=== PATIENT | male | born 1930 | race Caucasian/White ===

== ENCOUNTER 2017-05-10 14:54 | Inpatient (IN) | payer MEDICARE ==
[2017-05-10 15:25] LABS: #Eosinphils 0.1 thou/uL (0.0-0.7); #Lymphocytes 1.4 thou/uL (1.20-3.40); #Monocytes 0.7 thou/uL (0.11-0.59); #Neutrophils 3.2 thou/uL (1.40-6.50); %Basophils 0.5 % (0.0-1.0); %Eosinophils 2.1 % (0.0-10.0); %Lymphocytes 25.6 % (21.0-51.0); %Monocytes 12.7 % (0.0-10.0); %Neutrophils 59.2 % (42.0-75.0); Hemoglobin 11.7 g/dL (14.0-18.0); Mean Corpuscular HGB CONC 32.4 g/dL (32.0-36.0); Mean Corpuscular Hemoglobin 33.4 pg (27.0-31.0); Mean Platelet Volume 7.8 fL (7.4-10.4); Platelet Count 226 thou/uL (130-400); RBC Distribution Width 12.2 % (11.5-14.5); Red Blood Cell (RBC) Count 3.51 mill/uL (4.70-6.10); White Blood Cell (WBC) Count 5.3 thou/uL (4.8-10.8)
[2017-05-10 15:38] LABS: ALT (SGPT) 27 U/L (8-55); AST (SGOT) 20 U/L (5-34); Albumin 4.4 g/dL (3.4-4.8); Alkaline Phosphatase 94 U/L (40-150); Anion Gap 11 mmol/L (10-20); BUN (Urea Nitrogen) 20 mg/dL (8.4-25.7); Bilirubin, Total 0.2 mg/dL (0.2-1.2); CK (CPK) 131 U/L (30-200); Calc. Creatinine Clearance 0 mL/min (70-130); Calcium 10.5 mg/dL (7.8-10.44); Carbon Dioxide 26 mmol/L (23-31); Chloride 103 mmol/L (98-107); Estimated GFR-MDRD Greater than 90; Globulin 2.6 g/dL (2.4-3.5); Glucose 119 mg/dL (83-110); Potassium 5.4 mmol/L (3.5-5.1); Sodium 135 mmol/L (136-145)
[2017-05-10 15:46] LABS: CKMB 6.8 ng/mL (0-6.6); Troponin I 1.008 ng/mL (< 0.028)
[2017-05-10] MEDS ORDERED: Nitroglycerin 2% Ointment 1 INCH/1 GM Packet ONE (15:54)
[2017-05-10] MEDS ORDERED: Enoxaparin Sodium 80 MG/0.8 ML SYRINGE ONE (15:54)
--- NOTE | 2017-05-10 16:05 | RAD ---
RADIOGRAPH CHEST 1 VIEW: Date: 05/10/17 Time: 3:44 p.m. HISTORY: 86-year-old male with chest discomfort (heaviness). COMPARISON: 05/31/15 FINDINGS: Again noted are the sternotomy wires. There is no cardiomegaly. There is a new finding of bilateral s mall pleural effusions. There is another new finding of ill-defined increased attenuation at the righ t medial lower lung zone which could represent atelectasis, although early pneumonia would be difficu lt to exclude. Streaky densities at the retrocardiac portion of the left lower lobe is probably chron ic. Pulmonary vasculature is slightly prominent. Upper lobes are otherwise grossly clear. No pneumoth orax. IMPRESSION: 1. Bilateral small pleural effusions. 2. Probable mild atelectasis at right medial lung base. JN [] POS: OFF
[2017-05-10] MEDS ORDERED: Clopidogrel Bisulfate 75 MG TAB ONE (16:47)
[2017-05-10 16:52] LABS: INR-International Normal Ratio 1.1; PTT 32.3 SEC (22.9-36.1); Prothrombin Time 14.5 SEC (12.0-14.7)
[2017-05-10] MEDS ORDERED: Acetaminophen/Codeine 30-300mg Tablet PO PRN (18:15)
[2017-05-10] MEDS ORDERED: traMADol HCl 50 MG TAB PO PRN (18:15)
[2017-05-10] MEDS ORDERED: Ondansetron ODT 4 MG TAB PO PRN (18:37)
[2017-05-10] MEDS ORDERED: HYDROcodone/Acetaminophen 5/325 mg Tablet PO PRN (18:37)
[2017-05-10] MEDS ORDERED: Nitroglycerin 0.4 MG TAB (25 Tab Bottle) PO PRN (18:37)
[2017-05-10] MEDS ORDERED: Ondansetron HCl/PF 4 MG/2 ML Vial IVP PRN (18:37)
--- NOTE | 2017-05-10 18:47 | HP ---
DATE OF ADMISSION: 05/10/2017 CHIEF COMPLAINT: Shortness of breath. HISTORY OF PRESENT ILLNESS: This is an 86-year-old white male with a known past medical history of c oronary artery disease with history of CABG done more than 3 years ago. The patient was in his usual state of health until a few weeks ago when he contacted with flu by his , who was actually turne d positive, so the patient took Tamiflu along with his and following this, he continued to have lingering cough since then, but for the past few days, he is noticing he has had worsening dyspnea on exertion even on walking short distances. He denied having any chest pain, no nausea, no vomiting, no diarrhea, no constipation, no dizziness, no lightheadedness. The patient's decided to bring him to the ER as she did not feel that his breathing right. When the patient went to his primary car e physician's office, he was referred to the ER as he had an abnormal EKG over there. The patient ca me to the ER and had an EKG repeated which did show ST segment depression and markedly elevated tropo nins. His Cardiology is Dr. Aguayo, but Dr. Quan was called in to see the patient. The patient wa s alert and oriented otherwise. PAST MEDICAL HISTORY: 1. Coronary artery disease with CABG. 2. Chronic low back pain. 3. Hypertension. 4. Hyperlipidemia. 5. History of benign prostate hypertrophy. PAST SURGICAL HISTORY: 1. CABG more than [address] London. 2. History of aneurysm repair by Dr. London around the same time when he had the CABG. 3. History of lumbar laminectomy in 2016. SOCIAL HISTORY: The patient is a not a known smoker. No history of alcohol, no history of illicit d rug use. FAMILY HISTORY: No significant family history of coronary artery disease. REVIEW OF SYSTEMS: All 12 systems are reviewed with the patient thoroughly and found to be negative at this time except the ones described in HPI. Constitutional: Weight loss or gain, sense of well-being, ability to conduct usual activities, exerc ise tolerance. Skin/Breast: Rash, itching, changes in hair growth or loss, nail changes, breast lumps, tenderness, swelling, nipple discharge. Eyes: Vision, double vision, tearing, blind spots, pain. ENT/Mouth: Headaches (location, time of onset, duration, precipitating factors), vertigo, lightheadedness, injury. Vision, double vision, tearing, blind spots, pain, nose b leeding, colds, obstruction, discharge, dental difficulties, gingival bleeding, dentures, neck stiffn ess, pain, tenderness, masses in thyroid or other areas Cardiovascular: Precordial pain, substernal distress, palpitations, syncope, dyspnea on exertion, or thopnea, nocturnal paroxysmal dyspnea, edema, cyanosis, hypertension, heart murmurs, varicosities, ph lebitis, claudication. Respiratory: Pain, shortness of breath, wheezing, stridor, cough, hemoptysis, fever or night sweats Gastrointestinal: Poor appetite, dysphagia, indigestion, abdominal pain, heartburn, eructation, naus ea, vomiting, hematemesis, jaundice, constipation, or diarrhea, abnormal stools (addison-colored, tarry, bloody, greasy, foul smelling), flatulence, hemorrhoids, recent changes in bowel habits. Genitourinary: Urgency, frequency, dysuria, nocturia, hematuria, polyuria, oliguria, unusual (or cheryl nge in) color of urine, stones, hesitancy, change in size of stream, dribbling, acute retention or in continence, libido, potency. Musculoskeletal: Pain, swelling, redness or heat of muscles or joints, limitation, of motion, muscular weakness, atrophy, cramps. Neurologic/Psychiatric: Convulsions, paralyses, tremor, incoordination, parasthesias, difficulties w ith memory of speech, sensory or motor disturbances, or muscular coordination (ataxia, tremor), emoti onal problems, anxiety, depression, previous psychiatric care, unusual perceptions, hallucinations. Allergy/Immunologic: Skin rash, anemia, bleeding tendency, polydipsia, polyuria, intolerance to heat or cold. PHYSICAL EXAMINATION: VITAL SIGNS: Blood pressures are 158/78, heart rate is 79, respiratory rate is 18, saturation is 98% . GENERAL: The patient is a moderately built, moderately nourished, does not appear to be in acute dis tress at this time. He was seen sitting on the bed at 45 degrees inclination with no acute shortness of breath. HEENT: Head atraumatic, normocephalic. PERRLA. Extraocular movements were intact. Oral mucosa pin k and moist. CARDIOVASCULAR: S1, S2 normal. No murmurs, rubs or gallops. LUNGS: Bilateral air entry was equal. Crackles were noted in the lower bases. ABDOMEN: Soft and nontender. No guarding, no rebound tenderness. Bowel sounds normal. MUSCULOSKELETAL: No calf tenderness. No pedal edema. No joint tenderness, no joint swelling. SKIN: No cyanosis, no erythema, no rash, no pallor. NEUROLOGIC: Cranial nerve examination II-XII intact. No focal deficits were noted. NECK: The patient had evidence of JVD noted. No thyromegaly. PSYCHIATRIC: No signs of suicidal ideation. No signs of marva was noted. LABORATORY DATA: Sodium 135, potassium 5.4, chloride 103, bicarbonate 26, BUN 20, creatinine 0.74. Troponin I 1.008. BNP is 1518. WBC 5.3, hemoglobin 11.7, hematocrit is 36.2, INR 1.1. ASSESSMENT AND PLAN: 1. Acute congestive heart failure with possible diastolic dysfunction. 2. Non-ST elevation myocardial infarction. 3. Hypertension. 4. Hyperlipidemia. 5. History of coronary artery disease with coronary artery bypass grafting. PLAN: 1. Plan is to start the patient on Lasix at this time with 40 mg IV b.i.d. and closely monitor. We will restart the patient on lisinopril home dose and will do a 2D echo. Cardiology has been consulte d. We will follow up with their recommendations. 2. The patient has elevated troponins, most likely is a demand ischemia, but the patient has ST depr essions, so the patient would definitely need further evaluation of this elevated troponins, which is markedly elevated at this time. The patient has been started on loading dose of aspirin and Plavix and Lovenox. We will continue with this and closely monitor the patient on the telemetry. 3. The patient has hypertension, is mildly elevated at this time. We will continue to monitor and p everett to keep the blood pressure less than 130/80. 4. History of hyperlipidemia. Continue the patient on the home medication. The patient is on simva statin. We will continue with this at this time. 5. Deep venous thrombosis prophylaxis. Lovenox 1 mg/kg b.i.d. I spent 75 minutes of this patient.
[2017-05-10 19:25] LABS: Troponin I 1.048 ng/mL (< 0.028)
[2017-05-10] MEDS ORDERED: Carvedilol 6.25 MG TAB PO SCH (21:00)
[2017-05-10] MEDS: Magnesium Oxide 400 MG TAB PO SCH (21:40)
[2017-05-10] MEDS: Tamsulosin HCl 0.4 MG CAP PO SCH (21:40)
[2017-05-10] MEDS: Carvedilol 3.125 MG TAB PO SCH (21:40)
[2017-05-10] MEDS: Famotidine/PF 20 mg/2ml Vial SLOW IVP SCH (21:40)
[2017-05-10] MEDS: Finasteride 5 MG TAB PO SCH (21:40)
[2017-05-10 22:24] LABS: Critical Call Chem Troponin I RESULT DECREASING; Troponin I 1.017 ng/mL (< 0.028)
[2017-05-10] MEDS: Lysine 500 MG TAB PO SCH (22:30)
--- NOTE | 2017-05-10 23:28 | CON ---
CARDIOLOGY CONSULTATION NOTE DATE OF CONSULTATION: 05/10/2017 INDICATION FOR CONSULTATION: An 86-year-old patient with history of coronary artery disease, status post bypass surgery with increasing shortness of breath, dyspnea on exertion and abnormal cardiac enz ymes with a right bundle branch block. HISTORY OF PRESENT ILLNESS: This is a very unfortunate 86-year-old gentleman who has been seen by Dr Radha Cisneros for several years. He underwent bypass surgery with [address] London in 2003, unce rtain as to which vessels were bypassed. He also apparently had some type of aneurysm, he said, whic h was repaired at the same time and uncertain exactly what he means, but it was not a vascular aneury sm. It could have been some type of cardiac aneurysm, unclear. He denied having any previous myocar dial infarction; however, recent stress test did show evidence of inferior wall scar. This may be a new finding. His ejection fraction previously had been within normal limits. At this time, he had b een complaining of some shortness of breath and dyspnea on exertion and had been worsened since . He did have the flu-like illness or had the flu in March and been coughing a lot, but this has pretty much resolved, but then he started noticing increasing shortness of breath and dyspnea on exer tion and he also noticed some increasing chest pressure. He had been taking an aspirin every other d ay. He did not take nitroglycerin. He presented to the emergency room where EKG shows a right bundl e branch block with nonspecific ST segment changes. His troponin I was 1.008; however, the BNP was 1 518. He appears to be in some congestive heart failure. At this time, he denies any chest pain and appears to be relatively comfortable except he does have shortness of breath and has had diffuse whee zing. Previous nuclear study in 2017 showed the inferior scar with ejection fraction of 45%. He has also undergone an echocardiogram previously in 2016; the ejection fraction was 55% to 60% with mild left ventricular hypertrophy and large left atrium. At this time, he is stable. PAST MEDICAL AND SURGICAL HISTORY: Significant for coronary artery disease, hypertension, hyperlipid emia, bypass surgery, history of colon cancer, history of back surgery, history of chronic diarrhea a nd history of benign prostatic hypertrophy. ALLERGIES: He is allergic to NONSTEROIDALS and other ANTI-INFLAMMATORY DRUGS such as from the opioid types, MORPHINES. MEDICATIONS: Prior to admission include hydralazine 10 mg b.i.d.; Coreg 25 mg b.i.d.; simvastatin 20 mg q. day; Imdur 30 mg q. day; aspirin 81 mg q. day, but he said he takes a whole aspirin every othe r day; gabapentin 600 mg t.i.d.; fluticasone nasal spray; tamsulosin ER 0.4 mg capsules q.24 hours; f inasteride 5 mg q. day; Creon capsules, which were prescribed by Dr. Teixeira for his diarrhea. He say s this is not improved; however, he takes 1 capsule 3 times a day with meals and 1 capsule with snack s, it was 24,000/76,000/120,000 units capsules. He takes vitamin B12. He also takes alfuzosin ER 10 mg extended tablets once a day. FAMILY HISTORY: Noncontributory at this time. SOCIAL HISTORY: He has had no alcohol or tobacco abuse at this time. He has a supportive family. Louise tubbs remains . REVIEW OF SYSTEMS: A 12-point review of systems is positive for mainly for the shortness of breath, chronic diarrhea and frequent urination due to his prostate problems. He has had no other significan t complaints on the review of systems. PHYSICAL EXAMINATION: GENERAL: Reveals an elderly gentleman who is in mild distress, but is stable at this time. VITAL SIGNS: His blood pressure was 144/83 in the emergency room and is now down to 126/70, heart ra hang in the 70s and shows a sinus rhythm, respiratory rate is 18. He is afebrile. HEENT: Shows head to be normocephalic and atraumatic. I did not hear any significant carotid bruits ; however, he does have increased upper airway noise due to diffuse wheezing. CHEST: Has diffuse wheezing throughout, especially expiratory in all medel, appears to be very tigh t. CARDIOVASCULAR: Reveals a regular rate and rhythm. I cannot hear any significant murmurs, heaves, t hrills, bruits or rubs. ABDOMEN: Shows obesity with positive bowel sounds. No organomegaly or masses were noted. Femoral p ulses are present. Popliteal pulses are present. I could palpate both pedal pulses. He does have 1 -2+ lower extremity edema. He also has a well-healed midline surgical incision after median sternoto my. NEUROLOGIC: The patient appears to be fully intact. SKIN: Warm and dry at this time. PSYCHOSOCIAL: Psychologically, he appears to be stable. No other significant abnormalities were not ed. IMAGING DATA: His EKG shows a sinus rhythm with a right bundle branch block with some nonspecific ST segment changes. Chest x-ray shows small bilateral pleural effusions. BNP is 1518. His troponin I is 1.08, MB was 6.8 and creatinine is 0.74. IMPRESSION AND PLAN: 1. Congestive heart failure exacerbation, which may be secondary to ischemia. We will need to fully evaluate the patient. He will be admitted to the hospital and ruled out for myocardial infarction. His cardiac enzymes appeared to be positive, but may be due to demand ischemia. He will undergo diu resis and we will determine whether or not he has had any type of myocardial infarction or further is chemia, should it become emergently; he may need to undergo cardiac catheterization. We will also ob tain an echocardiogram for evaluation of his left ventricular systolic function. 2. History of coronary artery disease. We will continue to follow this very carefully and as noted, he has had bypass surgery in 2004. His most recent stress test showed what appeared to be an inferi or scar with ejection fraction of 46%. This was performed in 2017. He also had carotid artery disea se according to the records. In 07/2016, he had carotid Dopplers performed, which showed a left valdez tid stenosis of 50% to 79% in the carotid bulb area and the right common carotid artery was less than 50%. He also has some history of peripheral vascular disease involving the left area which avalos d some significant stenosis or disease; however, he does have pedal pulses noted in the left lower ex tremity in the feet in the pedal area. 3. History of chronic diarrhea. He will continue his medications as they will need to be dealt with by the GI if necessary. 4. History of chronic back pain and nerve problems for which he did have some complaints of cramping in the lower extremities. 5. History of hyperlipidemia. We will continue his statin medications. 6. Dizziness. This is a chronic problem, but he is not debilitating at this time. We will be more than happy to continue to follow the patient with you. We will continue to do serial enzymes on the patient and we will see whether or not he is able to diuresis and hopefully will impr ove his overall symptoms.
[2017-05-10] MEDS ORDERED: Furosemide 40 MG/4 ML VIAL SLOW IVP SCH (23:30)
[2017-05-11 05:40] LABS: Albumin 4.3 g/dL (3.4-4.8); Anion Gap 12 mmol/L (10-20); BUN (Urea Nitrogen) 18 mg/dL (8.4-25.7); Calc. Creatinine Clearance 79 mL/min (70-130); Calcium 10.6 mg/dL (7.8-10.44); Carbon Dioxide 28 mmol/L (23-31); Cardiac Risk 3.8 (Less than 4.5); Chloride 101 mmol/L (98-107); Cholesterol 124 mg/dl (< 200 Desired); Estimated GFR-MDRD Greater than 90; Glucose 117 mg/dL (83-110); HDL Cholesterol 33 mg/dL (>60 Neg Risk); LDL Cholesterol, Calculated 63 mg/dL; Magnesium 2.1 mg/dL (1.6-2.6); Phosphorus 4.1 mg/dL (2.3-4.7); Potassium 4.6 mmol/L (3.5-5.1); Sodium 136 mmol/L (136-145); Triglycerides 141 mg/dL (Less than 150)
[2017-05-11] MEDS: Furosemide 40 MG/4 ML VIAL SLOW IVP SCH ×2 (06:11→14:56)
[2017-05-11] MEDS: Spironolactone 25 MG TAB PO SCH (10:08)
[2017-05-11] MEDS: Cyanocobalamin (Vitamin B-12) 1,000 MCG TAB PO SCH (10:09)
[2017-05-11] MEDS: Lisinopril 10 MG TAB PO SCH (10:09)
[2017-05-11] MEDS: Enoxaparin Sodium 80 MG/0.8 ML SYRINGE SC SCH ×2 (10:10→21:33)
[2017-05-11] MEDS: Lysine 500 MG TAB PO SCH ×2 (10:10→21:32)
[2017-05-11] MEDS: Carvedilol 3.125 MG TAB PO SCH (10:10)
[2017-05-11] MEDS: Ubidecarenone 50 MG CAP PO SCH (10:10)
[2017-05-11] MEDS: Vit A,C & E/Lutein/Minerals Tablet PO SCH (10:10)
[2017-05-11] MEDS: Magnesium Oxide 400 MG TAB PO SCH ×2 (10:10→21:32)
[2017-05-11] MEDS: Fluticasone Propionate Nasal Spray 16 gm Bottle NASAL SCH (10:11)
[2017-05-11] MEDS: Famotidine/PF 20 mg/2ml Vial SLOW IVP SCH ×2 (10:12→21:33)
[2017-05-11 13:39] VITALS: BMI 26.2
--- NOTE | 2017-05-11 14:15 | PDOC.PN ---
- Subjective Encounter Start Date: 05/11/17 Encounter Start Time: 10:15 Zeny is seen today, walkning in the hallway, alert and oriented. he feels better he says. No chest pain. - Objective Resuscitation Status: Resuscitation Status FULL:Full Resuscitation Vital Signs & Weight: Vital Signs (12 hours) Temp Pulse Pulse Pulse Resp BP BP 05/11/17 12:51 84 87 134/63 05/11/17 11:41 100.2 F H 85 20 05/11/17 10:09 134/66 05/11/17 07:20 99.5 F 84 24 H 05/11/17 07:15 99.5 F 84 24 H 05/11/17 06:47 05/11/17 04:00 97.5 F L 82 20 BP BP Pulse Ox Pulse Ox Pulse Ox 05/11/17 12:51 147/71 H 92 L 97 05/11/17 11:41 130/63 92 L 05/11/17 10:09 05/11/17 07:20 134/66 92 L 05/11/17 07:15 92 L 05/11/17 06:47 100 05/11/17 04:00 139/72 98 Weight Admit Weight 182 lb 5 oz Weight 178 lb I&O: 05/10/17 05/11/17 05/12/17 06:59 06:59 06:59 Intake Total 480 Output Total 3500 Balance -3020 Result Diagrams: 05/10/17 15:10 05/11/17 04:24 Radiology Reviewed by me: Yes EKG Reviewed by me: Yes Phys Exam - Physical Examination HEENT: PERRLA, moist MMs Neck: no nodes, supple, full ROM Respiratory: no rales, wheezing present Cardiovascular: RRR, no significant murmur Gastrointestinal: soft, non-tender, no distention Musculoskeletal: pulses present, edema present Neurological: non-focal, normal sensation Lymphatic: no nodes Psychiatric: normal affect, A&O x 3 Dx/Plan (1) Acute systolic CHF (congestive heart failure) Code(s): I50.21 - ACUTE SYSTOLIC (CONGESTIVE) HEART FAILURE Status: Acute Comment: Worsneing BNP noted, pt on Aggresive Diuresis 40mg Iv BID, will cnahge coreg back to his home dose 12.5mg BID, ACEI 20mg daily, Echo pending. (2) NSTEMI (non-ST elevated myocardial infarction) Code(s): I21.4 - NON-ST ELEVATION (NSTEMI) MYOCARDIAL INFARCTION Status: Acute Comment: Likely Demand ischemia, pt on Aspirin/ Lovenox BB, Cardiology following. (3) Hypertension Code(s): I10 - ESSENTIAL (PRIMARY) HYPERTENSION Status: Acute Comment: Will increase Coreg, and lisinoporil if needed Goal < 130/80. (4) CAD (coronary artery disease) Code(s): I25.10 - ATHSCL HEART DISEASE OF [place] CORONARY ARTERY W/O ANG PCTRS Status: Acute Comment: Continue to Monitor [place], H/o CABG. (5) Hyperlipidemia Code(s): E78.5 - HYPERLIPIDEMIA, UNSPECIFIED Status: Acute Comment: Continue on Statin. - Plan cont current plan of care, plan discussed w/ family, PT/OT, director social, respiratory therapy, incentive spirometry, DVT proph w/lovenox * . - Discharge Day Encounter end time: 10:45 Review of Systems - Review of Systems Constitutional: negative: fever, chills, sweats, weakness, malaise, other Eyes: negative: Pain, Vision Change, Conjunctivae Inflammation, Eyelid Inflammation, Redness, Other ENT: negative: Ear Pain, Ear Discharge, Nose Pain, Nose Discharge, Nose Congestion, Mouth Pain, Mouth Swelling, Throat Pain, Throat Swelling, Other Respiratory: Shortness of Breath, SOB with Excertion, Wheezing Cardiovascular: orthopnea. negative: chest pain, palpitations, paroxysmal nocturnal dyspnea, edema, light headedness, other Gastrointestinal: negative: Nausea, Vomiting, Abdominal Pain, Diarrhea, Constipation, Melena, Hematochezia, Other Musculoskeletal: negative: Neck Pain, Shoulder Pain, Arm Pain, Back Pain, Hand Pain, Leg Pain, Foot Pain, Other Skin: negative: Rash, Lesions, Ifeanyi, Bruising, Other - Medications/Allergies Allergies/Adverse Reactions: Allergies Allergy/AdvReac Type Severity Reaction Status Date / Time codeine Allergy Verified 05/10/17 20:58 Medications: Current Medications Hydrocodone Bitart/Acetaminophen ([place] 5/325) 1 tab PO Q4H PRN PRN Reason: Moderate Pain (4-6) Albuterol/Ipratropium (Duoneb) 3 ml NEB Q4H PRN PRN Reason: SOB &/or Wheezing Carvedilol (Coreg) 12.5 mg PO BID-[facility] Coenzyme Q10 (Coenzyme Q10) 100 mg PO DAILY [facility] Last Admin: 05/11/17 10:10 Dose: 100 mg Cyanocobalamin (Vitamin B-12) 1,000 mcg PO DAILY [facility] Last Admin: 05/11/17 10:09 Dose: 1,000 mcg Enoxaparin Sodium (Lovenox) 80 mg SC 0900,2100 [facility] Last Admin: 05/11/17 10:10 Dose: 80 mg Famotidine (Pepcid) 20 mg SLOW IVP Q12HR [facility] Last Admin: 05/11/17 10:12 Dose: 20 mg Finasteride (Proscar) 5 mg PO QPM [facility] Last Admin: 05/10/17 21:40 Dose: 5 mg Fluticasone Propionate (Flonase Nasal [place]) 0 gm NASAL DAILY [facility] Last Admin: 05/11/17 10:11 Dose: 2 spr Furosemide (Lasix) 40 mg SLOW IVP 0600,1400 [facility] Last Admin: 05/11/17 06:11 Dose: 40 mg Lisinopril (Zestril) 10 mg PO DAILY [facility] Last Admin: 05/11/17 10:09 Dose: 10 mg Lysine (L-Lysine) 500 mg PO BID [facility] Last Admin: 05/11/17 10:10 Dose: 500 mg Magnesium Oxide (Magnesium Oxide) 400 mg PO BID [facility] Last Admin: 05/11/17 10:10 Dose: 400 mg Multivitamins/Minerals (Ocuvite With Lutein) 1 tab PO DAILY [facility] Last Admin: 05/11/17 10:10 Dose: 1 tab Nitroglycerin (Nitrostat) 0.4 mg PO Q5MIN PRN PRN Reason: Chest Pain Ondansetron HCl (Zofran Odt) 4 mg PO Q6H PRN PRN Reason: Nausea/Vomiting Ondansetron HCl (Zofran) 4 mg IVP Q6H PRN PRN Reason: Nausea/Vomiting Spironolactone (Aldactone) 12.5 mg PO DAILY [facility] Last Admin: 05/11/17 10:08 Dose: 12.5 mg Tamsulosin HCl (Flomax) 0.4 mg PO QPM [facility] Last Admin: 05/10/17 21:40 Dose: 0.4 mg Tizanidine HCl (Zanaflex) 4 mg PO Q6H PRN PRN Reason: Muscle Spasm Tramadol HCl (Ultram) 50 mg PO Q6H PRN PRN Reason: Mild Pain (1-3) Last Admin: 05/10/17 22:32 Dose: 50 mg
[2017-05-11] MEDS: Carvedilol 6.25 MG TAB PO SCH (17:05)
[2017-05-11] MEDS: Finasteride 5 MG TAB PO SCH (21:32)
[2017-05-11] MEDS: Tamsulosin HCl 0.4 MG CAP PO SCH (21:32)
[2017-05-12] MEDS: Furosemide 40 MG/4 ML VIAL SLOW IVP SCH ×2 (05:48→13:21)
[2017-05-12] MEDS: tiZANidine HCl 4 MG TAB PO PRN ×2 (05:55→15:45)
[2017-05-12] MEDS ORDERED: Sodium Chloride 0.9% 10 ML ONE (07:53)
[2017-05-12] MEDS: Ubidecarenone 50 MG CAP PO SCH (09:15)
[2017-05-12] MEDS: Lisinopril 10 MG TAB PO SCH (09:16)
[2017-05-12] MEDS: Cyanocobalamin (Vitamin B-12) 1,000 MCG TAB PO SCH (09:16)
[2017-05-12] MEDS: Spironolactone 25 MG TAB PO SCH (09:16)
[2017-05-12] MEDS: Vit A,C & E/Lutein/Minerals Tablet PO SCH (09:16)
[2017-05-12] MEDS: Magnesium Oxide 400 MG TAB PO SCH ×2 (09:17→21:23)
[2017-05-12] MEDS: Fluticasone Propionate Nasal Spray 16 gm Bottle NASAL SCH (09:18)
[2017-05-12] MEDS: Carvedilol 6.25 MG TAB PO SCH ×2 (09:18→18:45)
[2017-05-12] MEDS: Enoxaparin Sodium 80 MG/0.8 ML SYRINGE SC SCH (09:18)
[2017-05-12] MEDS: Famotidine/PF 20 mg/2ml Vial SLOW IVP SCH (10:00)
[2017-05-12] MEDS: Lysine 500 MG TAB PO SCH ×2 (10:00→21:23)
[2017-05-12 10:25] LABS: Anion Gap 14 mmol/L (10-20); BUN (Urea Nitrogen) 23 mg/dL (8.4-25.7); Calc. Creatinine Clearance 71 mL/min (70-130); Calcium 10.7 mg/dL (7.8-10.44); Carbon Dioxide 28 mmol/L (23-31); Chloride 98 mmol/L (98-107); Estimated GFR-MDRD 87; Glucose 106 mg/dL (83-110); Potassium 4.5 mmol/L (3.5-5.1); Sodium 135 mmol/L (136-145)
[2017-05-12 10:56] LABS: Eosinophils 3 % (0-10); Hemoglobin 12.4 g/dL (14.0-18.0); Lymphocytes 18 % (21-51); MDiff Complete? YES; Mean Corpuscular HGB CONC 33.3 g/dL (32.0-36.0); Mean Corpuscular Hemoglobin 34.2 pg (27.0-31.0); Monocytes 15 % (0-10); Neutrophil 64 % (42-75); PLT Morphology Comment Appears Adequate; Platelet Count 248 thou/uL (130-400); RBC Distribution Width 12.2 % (11.5-14.5); RBC Morphology Normal; Red Blood Cell (RBC) Count 3.62 mill/uL (4.70-6.10); White Blood Cell (WBC) Count 7.2 thou/uL (4.8-10.8)
--- NOTE | 2017-05-12 12:33 | PDOC.PN ---
- Subjective Encounter Start Date: 05/12/17 Encounter Start Time: 11:15 Patient is seen today, alert and oriented and Discussed with his son at Bedside , about possible Cath in . Pt is stbale, no concern snoted. - Objective Resuscitation Status: Resuscitation Status FULL:Full Resuscitation MAR Reviewed: Yes Vital Signs & Weight: Vital Signs (12 hours) Temp Pulse Resp BP BP BP Pulse Ox 05/12/17 09:18 110/64 05/12/17 09:16 110/64 05/12/17 09:02 98.1 F 75 19 110/64 96 05/12/17 05:43 98.3 F 77 16 130/64 95 Weight Admit Weight 182 lb 5 oz Weight 171 lb I&O: 05/11/17 05/12/17 05/13/17 06:59 06:59 06:59 Intake Total 480 1360 Output Total 3500 3475 Balance -6410 -6184 Result Diagrams: 05/12/17 09:57 05/12/17 09:57 Radiology Reviewed by me: Yes EKG Reviewed by me: Yes Phys Exam - Physical Examination HEENT: PERRLA, moist MMs Neck: no nodes, supple Respiratory: wheezing present Cardiovascular: RRR, no significant murmur, no rub Gastrointestinal: soft, non-tender Musculoskeletal: no edema, pulses present Neurological: non-focal, normal sensation Lymphatic: no nodes Psychiatric: normal affect Skin: no rash, normal turgor, cap refill <2 seconds Dx/Plan (1) Acute systolic CHF (congestive heart failure) Code(s): I50.21 - ACUTE SYSTOLIC (CONGESTIVE) HEART FAILURE Status: Acute Comment: Persitant orthopnea, improving BNP noted, pt on Aggresive Diuresis 40mg Iv BID, will cnahge coreg back to his home dose 12.5mg BID, ACEI 20mg daily , Echo showed worsening EF. Discussed with cardiology planned for Cath on saturday. (2) NSTEMI (non-ST elevated myocardial infarction) Code(s): I21.4 - NON-ST ELEVATION (NSTEMI) MYOCARDIAL INFARCTION Status: Acute Comment: Likely Demand ischemia, pt on Aspirin/ Lovenox BB, Cardiology following. (3) Hypertension Code(s): I10 - ESSENTIAL (PRIMARY) HYPERTENSION Status: Acute Comment: Will increase Coreg, and lisinoporil if needed Goal < 130/80. (4) CAD (coronary artery disease) Code(s): I25.10 - ATHSCL HEART DISEASE OF [place] CORONARY ARTERY W/O ANG PCTRS Status: Acute Comment: Continue to Monitor Cloelsy, H/o CABG. (5) Hyperlipidemia Code(s): E78.5 - HYPERLIPIDEMIA, UNSPECIFIED Status: Acute Comment: Continue on Statin. - Plan cont current plan of care, plan discussed w/ family, PT/OT, social studies department chair, respiratory therapy, incentive spirometry, out of bed/ambulate, DVT proph w/ lovenox * . - Discharge Day Encounter end time: 11:50 Review of Systems - Review of Systems Constitutional: negative: fever, chills, sweats, weakness, malaise, other Eyes: negative: Pain, Vision Change, Conjunctivae Inflammation, Eyelid Inflammation, Redness, Other ENT: negative: Ear Pain, Ear Discharge, Nose Pain, Nose Discharge, Nose Congestion, Mouth Pain, Mouth Swelling, Throat Pain, Throat Swelling, Other Respiratory: Shortness of Breath. negative: Cough, Dry, Hemoptysis, SOB with Excertion, Pleuritic Pain, Sputum, Wheezing Cardiovascular: orthopnea, paroxysmal nocturnal dyspnea. negative: chest pain, palpitations, edema, light headedness, other Gastrointestinal: negative: Nausea, Vomiting, Abdominal Pain, Diarrhea, Constipation, Melena, Hematochezia, Other Genitourinary: negative: Dysuria, Frequency, Incontinence, Hematuria, Retention , Other Musculoskeletal: negative: Neck Pain, Shoulder Pain, Arm Pain, Back Pain, Hand Pain, Leg Pain, Foot Pain, Other Skin: negative: Rash, Lesions, Ifeanyi, Bruising, Other - Medications/Allergies Allergies/Adverse Reactions: Allergies Allergy/AdvReac Type Severity Reaction Status Date / Time codeine Allergy Verified 05/10/17 20:58 Medications: Current Medications Hydrocodone Bitart/Acetaminophen ([place] 5/325) 1 tab PO Q4H PRN PRN Reason: Moderate Pain (4-6) Albuterol/Ipratropium (Duoneb) 3 ml NEB Q4H PRN PRN Reason: SOB &/or Wheezing Carvedilol (Coreg) 12.5 mg PO BID-[facility] Last Admin: 05/12/17 09:18 Dose: 12.5 mg Coenzyme Q10 (Coenzyme Q10) 100 mg PO DAILY [facility] Last Admin: 05/12/17 09:15 Dose: 100 mg Cyanocobalamin (Vitamin B-12) 1,000 mcg PO DAILY [facility] Last Admin: 05/12/17 09:16 Dose: 1,000 mcg Enoxaparin Sodium (Lovenox) 80 mg SC 0900,2100 [facility] Last Admin: 05/12/17 09:18 Dose: 80 mg Famotidine (Pepcid) 20 mg PO BID [facility] Finasteride (Proscar) 5 mg PO QPM [facility] Last Admin: 05/11/17 21:32 Dose: 5 mg Fluticasone Propionate (Flonase Nasal [place]) 0 gm NASAL DAILY [facility] Last Admin: 05/12/17 09:18 Dose: 2 spr Furosemide (Lasix) 40 mg SLOW IVP 0600,1400 [facility] Last Admin: 05/12/17 05:48 Dose: 40 mg Lisinopril (Zestril) 10 mg PO DAILY [facility] Last Admin: 05/12/17 09:16 Dose: 10 mg Lysine (L-Lysine) 500 mg PO BID [facility] Last Admin: 05/12/17 10:00 Dose: 500 mg Magnesium Oxide (Magnesium Oxide) 400 mg PO BID [facility] Last Admin: 05/12/17 09:17 Dose: 400 mg Multivitamins/Minerals (Ocuvite With Lutein) 1 tab PO DAILY [facility] Last Admin: 05/12/17 09:16 Dose: 1 tab Nitroglycerin (Nitrostat) 0.4 mg PO Q5MIN PRN PRN Reason: Chest Pain Ondansetron HCl (Zofran Odt) 4 mg PO Q6H PRN PRN Reason: Nausea/Vomiting Ondansetron HCl (Zofran) 4 mg IVP Q6H PRN PRN Reason: Nausea/Vomiting Spironolactone (Aldactone) 12.5 mg PO DAILY [facility] Last Admin: 05/12/17 09:16 Dose: 12.5 mg Tamsulosin HCl (Flomax) 0.4 mg PO QPM [facility] Last Admin: 05/11/17 21:32 Dose: 0.4 mg Tizanidine HCl (Zanaflex) 4 mg PO Q6H PRN PRN Reason: Muscle Spasm Last Admin: 05/12/17 05:55 Dose: 4 mg Tramadol HCl (Ultram) 50 mg PO Q6H PRN PRN Reason: Mild Pain (1-3) Last Admin: 05/10/17 22:32 Dose: 50 mg
[2017-05-12] MEDS ORDERED: Furosemide 40 MG TAB PO SCH (14:00)
[2017-05-12] MEDS: Furosemide 40 MG TAB PO SCH (15:44)
[2017-05-12] MEDS: Famotidine 20 MG TAB PO SCH (21:22)
[2017-05-12] MEDS: Finasteride 5 MG TAB PO SCH (21:23)
[2017-05-12] MEDS: Tamsulosin HCl 0.4 MG CAP PO SCH (21:23)
[2017-05-13] MEDS ORDERED: Iopamidol 370 76% 100 ML VIAL ONE (07:56)
[2017-05-13] MEDS ORDERED: Iopamidol 370 76% 50 ML VIAL FS ONE (07:56)
[2017-05-13] MEDS: Vit A,C & E/Lutein/Minerals Tablet PO SCH (09:30)
[2017-05-13] MEDS: Spironolactone 25 MG TAB PO SCH (09:30)
[2017-05-13] MEDS: Cyanocobalamin (Vitamin B-12) 1,000 MCG TAB PO SCH (09:30)
[2017-05-13] MEDS: Ubidecarenone 50 MG CAP PO SCH (09:31)
[2017-05-13] MEDS: Carvedilol 6.25 MG TAB PO SCH ×2 (09:31→18:01)
[2017-05-13] MEDS: Magnesium Oxide 400 MG TAB PO SCH ×2 (09:31→19:54)
[2017-05-13] MEDS: Lysine 500 MG TAB PO SCH ×2 (09:31→19:54)
[2017-05-13] MEDS: Famotidine 20 MG TAB PO SCH ×2 (09:31→19:54)
[2017-05-13] MEDS: Lisinopril 10 MG TAB PO SCH (09:32)
[2017-05-13] MEDS: Furosemide 40 MG TAB PO SCH ×2 (09:32→17:56)
[2017-05-13] MEDS: Fluticasone Propionate Nasal Spray 16 gm Bottle NASAL SCH (09:32)
[2017-05-13] MEDS ORDERED: Communication Order-Pharmacy FS SCH (10:45)
[2017-05-13 11:11] LABS: Anion Gap 16 mmol/L (10-20); BUN (Urea Nitrogen) 22 mg/dL (8.4-25.7); Calc. Creatinine Clearance 70 mL/min (70-130); Calcium 11.2 mg/dL (7.8-10.44); Carbon Dioxide 25 mmol/L (23-31); Chloride 99 mmol/L (98-107); Estimated GFR-MDRD 87; Glucose 118 mg/dL (83-110); Potassium 4.5 mmol/L (3.5-5.1); Sodium 135 mmol/L (136-145)
[2017-05-13] MEDS ORDERED: Lidocaine 1% (PF) 30 ML VIAL ONE (11:23)
[2017-05-13] MEDS ORDERED: Heparin 10,000 UNITS/1 ML VIAL ONE (12:52)
[2017-05-13] MEDS ORDERED: Clopidogrel Bisulfate 300 MG TAB ONE (12:55)
[2017-05-13] MEDS ORDERED: Nitroglycerin 100MG/250ML BOT 250 ML ONE (13:12)
--- NOTE | 2017-05-13 13:17 | PDOC.PN ---
- Subjective Encounter Start Date: 05/13/17 Encounter Start Time: 10:00 patient is seen today, alert and oriented. no other concnr snoited, Pt will be Taken for laboratory associate this afternoon. - Objective Resuscitation Status: Resuscitation Status FULL:Full Resuscitation MAR Reviewed: Yes Vital Signs & Weight: Vital Signs (12 hours) Temp Pulse Pulse Pulse Resp BP BP 05/13/17 10:58 128 H 76 90/60 05/13/17 09:31 130/67 05/13/17 08:00 98.2 F 75 18 05/13/17 05:35 98.1 F 75 18 BP BP Pulse Ox Pulse Ox Pulse Ox 05/13/17 10:58 159/70 H 97 90 L 05/13/17 09:31 05/13/17 08:00 130/67 95 05/13/17 05:35 126/62 96 Weight Admit Weight 182 lb 5 oz Weight 168 lb 12.8 oz I&O: 05/12/17 05/13/17 05/14/17 06:59 06:59 06:59 Intake Total 1360 1250 Output Total 3475 2125 Balance -2115 -875 Result Diagrams: 05/12/17 09:57 05/13/17 10:33 Radiology Reviewed by me: Yes Phys Exam - Physical Examination HEENT: PERRLA, moist MMs Neck: no nodes, no JVD Respiratory: no wheezing, no rales Cardiovascular: RRR, no significant murmur Gastrointestinal: soft, non-tender, no distention Musculoskeletal: no edema, pulses present Dx/Plan (1) Acute systolic CHF (congestive heart failure) Code(s): I50.21 - ACUTE SYSTOLIC (CONGESTIVE) HEART FAILURE Status: Acute Comment: Persitant orthopnea, improving BNP noted, pt on Aggresive Diuresis 40mg Iv BID, will cnahge coreg back to his home dose 12.5mg BID, ACEI 20mg daily , Echo showed worsening EF. Discussed with cardiology planned for Cath today. (2) NSTEMI (non-ST elevated myocardial infarction) Code(s): I21.4 - NON-ST ELEVATION (NSTEMI) MYOCARDIAL INFARCTION Status: Acute Comment: Likely Demand ischemia, pt on Aspirin/ Lovenox BB, Cardiology following. (3) Hypertension Code(s): I10 - ESSENTIAL (PRIMARY) HYPERTENSION Status: Acute Comment: Will increase Coreg, and lisinoporil if needed Goal < 130/80. (4) CAD (coronary artery disease) Code(s): I25.10 - ATHSCL HEART DISEASE OF [place] CORONARY ARTERY W/O ANG PCTRS Status: Acute Comment: Continue to Monitor Cloelsy, H/o CABG. (5) Hyperlipidemia Code(s): E78.5 - HYPERLIPIDEMIA, UNSPECIFIED Status: Acute Comment: Continue on Statin. - Plan cont current plan of care, PT/OT, renal social worker, respiratory therapy, incentive spirometry, DVT proph w/lovenox * . - Discharge Day Encounter end time: 10:35 Review of Systems - Review of Systems Eyes: Pain, Vision Change ENT: Ear Pain, Ear Discharge Respiratory: Cough, Dry Cardiovascular: chest pain, palpitations Gastrointestinal: Nausea, Vomiting Musculoskeletal: Neck Pain, Shoulder Pain - Medications/Allergies Allergies/Adverse Reactions: Allergies Allergy/AdvReac Type Severity Reaction Status Date / Time codeine Allergy Verified 05/10/17 20:58 Medications: Current Medications Hydrocodone Bitart/Acetaminophen ([place] 5/325) 1 tab PO Q4H PRN PRN Reason: Moderate Pain (4-6) Albuterol/Ipratropium (Duoneb) 3 ml NEB Q4H PRN PRN Reason: SOB &/or Wheezing Carvedilol (Coreg) 12.5 mg PO BID-[facility] Last Admin: 05/13/17 09:31 Dose: 12.5 mg Coenzyme Q10 (Coenzyme Q10) 100 mg PO DAILY [facility] Last Admin: 05/13/17 09:31 Dose: 100 mg Cyanocobalamin (Vitamin B-12) 1,000 mcg PO DAILY [facility] Last Admin: 05/13/17 09:30 Dose: 1,000 mcg Famotidine (Pepcid) 20 mg PO BID [facility] Last Admin: 05/13/17 09:31 Dose: 20 mg Finasteride (Proscar) 5 mg PO QPM [facility] Last Admin: 05/12/17 21:23 Dose: 5 mg Fluticasone Propionate (Flonase Nasal [place]) 0 gm NASAL DAILY [facility] Last Admin: 05/13/17 09:32 Dose: 2 spr Furosemide (Lasix) 40 mg PO 0900,1400 [facility] Last Admin: 05/13/17 09:32 Dose: 40 mg Lisinopril (Zestril) 10 mg PO DAILY [facility] Last Admin: 05/13/17 09:32 Dose: 10 mg Lysine (L-Lysine) 500 mg PO BID [facility] Last Admin: 05/13/17 09:31 Dose: 500 mg Magnesium Oxide (Magnesium Oxide) 400 mg PO BID [facility] Last Admin: 05/13/17 09:31 Dose: 400 mg Miscellaneous Information (Communication Order-Pharmacy) 0 each FS ONE [facility] Stop: 05/14/17 09:00 Multivitamins/Minerals (Ocuvite With Lutein) 1 tab PO DAILY [facility] Last Admin: 05/13/17 09:30 Dose: 1 tab Nitroglycerin (Nitrostat) 0.4 mg PO Q5MIN PRN PRN Reason: Chest Pain Ondansetron HCl (Zofran Odt) 4 mg PO Q6H PRN PRN Reason: Nausea/Vomiting Ondansetron HCl (Zofran) 4 mg IVP Q6H PRN PRN Reason: Nausea/Vomiting Sodium Chloride (Flush - Normal Saline) 10 ml IVF Q12HR [facility] Sodium Chloride (Flush - Normal Saline) 10 ml IVF PRN PRN PRN Reason: Saline Flush Spironolactone (Aldactone) 12.5 mg PO DAILY [facility] Last Admin: 05/13/17 09:30 Dose: 12.5 mg Tamsulosin HCl (Flomax) 0.4 mg PO QPM [facility] Last Admin: 05/12/17 21:23 Dose: 0.4 mg Tizanidine HCl (Zanaflex) 4 mg PO Q6H PRN PRN Reason: Muscle Spasm Last Admin: 05/12/17 15:45 Dose: 4 mg Tramadol HCl (Ultram) 50 mg PO Q6H PRN PRN Reason: Mild Pain (1-3) Last Admin: 05/10/17 22:32 Dose: 50 mg
[2017-05-13] MEDS ORDERED: Milk Of Magnesia 30 ML UDCUP PO PRN (13:40)
[2017-05-13] MEDS ORDERED: Sodium Chloride 0.9% 1,000 ML IV SCH (13:45)
--- NOTE | 2017-05-13 15:23 | CON ---
DATE OF CONSULTATION: 05/13/2017 DICTATED BY: Elis Baptiste CONSULTING PHYSICIAN: Dr. Tariq Cisneros REASON FOR CONSULTATION: Sustained ventricular tachycardia. HISTORY OF PRESENT ILLNESS: Mr. Alfred is an 86-year-old gentleman who has been followed by Dr. Cisneros for several years. He has a history of coronary artery disease requiring prior bypass surgery by Dr. London in 2003. This was a 4-vessel bypass. There was also some questionable history of an aneurysmal repair at the time of bypass. Previously his ejection fraction has been preserved, but on recent stress test in 2017 there was an inferior scar with an ejection fraction of 45%. Previously on TVFO in 2016 with EF of 55-60% with mild LVH and an enlarged left atrium. He presented to the hospital on 05/10/2017 with congestive heart failure symptoms. He was having increased dyspnea on exertion and shortness of breath. He was also having some chest pressure for which he was taking an aspirin every other day. He denied taking any nitroglycerin. EKG revealed a right bundle branch block with nonspecific ST changes. His troponin on presentation in the emergency room was 1.008 and his BNP was elevated at 1518. At that time , he was diagnosed with a non-ST elevation SD, possibly related to his heart failure exacerbation versus ischemia and he is undergoing workup for this. PAST MEDICAL HISTORY: 1. Coronary artery disease with history of 4-vessel [place] [address] London. 2. Aneurysm, unknown type, but not vascular. 3. Hypertension. 4. Hyperlipidemia. 5. Colon cancer. 6. Back surgery. 7. Benign prostatic hypertrophy. 8. Chronic diarrhea. REVIEW OF SYSTEMS: CONSTITUTIONAL: Negative for fevers, chills, malaise, night sweats or recent weight fluctuations. HEENT: Negative for vision changes, speech changes or difficulty swallowing. CARDIOVASCULAR: Positive for chest pain. Positive for palpitations and heart racing. PULMONARY: Positive for dyspnea on exertion. Positive for increasing shortness of breath. Negative for recent respiratory illness and positive for cough. GASTROINTESTINAL: Negative for nausea, vomiting. Positive for chronic diarrhea. Negative for blood in stool. : Negative for frequency. Positive for difficulty urinating with BPH and negative for blood in the urine. ALLERGIES: NSAIDs and ANTI-INFLAMMATORY MEDICATIONS including OPOID TYPE and MORPHINE. HOME MEDICATIONS: Hydralazine 10 mg b.i.d., Coreg 25 mg b.i.d., simvastatin 20 mg daily, Imdur 30 mg daily, aspirin 81 mg every other day, gabapentin 600 mg t.i.d., Flonase nasal spray as needed, tamsulosin 0.4 mg daily, finasteride 5 mg daily, Creon capsules for his diarrhea 1 capsule 3 times a day with meals, vitamin B12 and alfuzosin ER 10 mg tablet daily. FAMILY HISTORY: Negative for sudden cardiac and early onset coronary artery disease at age of 56. SOCIAL HISTORY: Negative for tobacco habituation, alcohol abuse or illicit drug abuse. He is and has a supportive family. PHYSICAL EXAMINATION: GENERAL: This is an elderly gentleman resting comfortably in bed. He is in no acute distress. His speech is clear. His affect is appropriate. VITAL SIGNS: Most recent vital signs; blood pressure 130/67, temperature 98.2, pulse 75, respirations 18, oxygen is 95% on 1 liter nasal cannula. HEENT: The patient is normocephalic. Sclerae are anicteric, EOMs are intact. His neck is supple with mild jugular congestion. The thyroid is nonpalpable. His trachea is midline. Warm, moist and pink with adequate dentition. CHEST: Lungs are diminished in the bases without wheezes, crackles or rhonchi. Respirations are even and unlabored. HEART: Rate is irregularly irregular. EXTREMITIES: Lower extremities are warm and dry to touch without clubbing or cyanosis. Edema is present bilaterally, 1+. ABDOMEN: Benign. The abdomen is soft and nontender without organomegaly and hepatojugular reflux is negative. There are no palpable masses. DATABASE: Hematology on 05/12/2017; WBC 7.2, hemoglobin 12.4, hematocrit 37.2, platelet count is 248. Chemistry on 05/13/2017; sodium 135, potassium 4.5, chloride 99, carbon dioxide 25, BUN is 22, creatinine 0.87, glucose 118, calcium 112. Serial troponins on 05/10/2017 were 1.008, 1.048 and 1.017. Trending BNPs starting on 05/11/2017; 2011, on 05/12/2017 was 1195 and on 2017 was 1506. Coagulation panel on 05/10/2017, PT is 14.5, INR is 1.1, APTT is 32.3. Chest x-ray on 05/10/2017; impression; bilateral small pleural effusions and mild atelectasis at right medial lung base. EKGs available on the chart were reviewed personally, as well as telemetry tracings from bed monitor. The patient had obvious sustained ventricular tachycardia that was self-terminating. Rates in the 150 range. BALDEMAR on 05/10/2017 - Summary; LV size moderately increased with EF 25-30%, left atrium mildly dilated, moderate MR, aortic valve mildly sclerotic but not significantly stenotic, mild TR and mildly elevated PAP. IMPRESSION: 1. Sustained, self-terminating ventricular tachycardia. 2. Congestive heart failure, acute on chronic with worsening systolic dysfunction with left ventricular ejection fraction 25-30%. NYHA functional class 3. 3. Right bundle branch block. 4. Coronary artery disease with prior 4-vessel bypass surgery and aneurysmal repair, going for left heart catheterization today. PLAN: The patient would likely benefit from an EP study and possible ICD implant to be performed, possibly in the morning on 05/14/2017. Depending on the results of the ischemia workup in the cardiac cath lab manager today. If the patient has no significant coronary artery disease that is likely contributing to the symptoms and no PTCA is needed, we will likely proceed with EP study and possible ICD tomorrow. We will check a 2D echo for LV dyssynchrony. Thank you for allowing us to participate in the care of this patient. DOMINIQUE
[2017-05-13] MEDS: Amiodarone 200 MG TAB PO SCH (19:54)
[2017-05-13] MEDS: Tamsulosin HCl 0.4 MG CAP PO SCH (19:54)
[2017-05-13] MEDS: Finasteride 5 MG TAB PO SCH (19:54)
[2017-05-14 05:52] LABS: Eosinophils 2 % (0-10); Hemoglobin 12.9 g/dL (14.0-18.0); Lymphocytes 23 % (21-51); MDiff Complete? YES; Mean Corpuscular HGB CONC 31.7 g/dL (32.0-36.0); Mean Corpuscular Hemoglobin 32.1 pg (27.0-31.0); Mean Platelet Volume 7.6 fL (7.4-10.4); Monocytes 8 % (0-10); Neutrophil 67 % (42-75); PLT Morphology Comment Appears Adequate; Platelet Count 270 thou/uL (130-400); RBC Distribution Width 11.9 % (11.5-14.5); White Blood Cell (WBC) Count 7.3 thou/uL (4.8-10.8)
[2017-05-14 05:54] LABS: ALT (SGPT) 16 U/L (8-55); AST (SGOT) 16 U/L (5-34); Albumin 4.2 g/dL (3.4-4.8); Alkaline Phosphatase 74 U/L (40-150); Anion Gap 12 mmol/L (10-20); BUN (Urea Nitrogen) 23 mg/dL (8.4-25.7); Bilirubin, Total 0.5 mg/dL (0.2-1.2); Calc. Creatinine Clearance 73 mL/min (70-130); Calcium 10.9 mg/dL (7.8-10.44); Carbon Dioxide 27 mmol/L (23-31); Chloride 101 mmol/L (98-107); Estimated GFR-MDRD Greater than 90; Globulin 2.8 g/dL (2.4-3.5); Glucose 119 mg/dL (83-110); Potassium 5.1 mmol/L (3.5-5.1); Sodium 135 mmol/L (136-145)
--- NOTE | 2017-05-14 08:03 | PDOC.PN ---
- Subjective Encounter Start Date: 05/14/17 Encounter Start Time: 08:01 Subjective: nsg notes rev, naseem ovn, no c/o in good spirits, no SOB/ ALVARES, eating break -: fast with 2LNC in place asking appropriate questions - Objective Resuscitation Status: Resuscitation Status FULL:Full Resuscitation Vital Signs & Weight: Vital Signs (12 hours) Temp Pulse Resp BP Pulse Ox 05/14/17 04:59 97.7 F 72 18 128/60 96 05/13/17 22:59 65 18 122/67 93 L Weight Admit Weight 182 lb 5 oz Weight 167 lb 6.4 oz I&O: 05/13/17 05/14/17 05/15/17 06:59 06:59 06:59 Intake Total 1250 830 Output Total 2125 120 Balance -875 710 Result Diagrams: 05/14/17 04:16 05/14/17 04:16 Phys Exam - Physical Examination Constitutional: NAD HEENT: PERRLA, moist MMs, sclera anicteric Neck: no nodes Respiratory: no wheezing, no rales, no rhonchi, clear to auscultation bilateral Cardiovascular: RRR, no significant murmur, no rub Gastrointestinal: soft, positive bowel sounds Musculoskeletal: no edema, pulses present Neurological: moves all 4 limbs Psychiatric: normal affect, A&O x 3 Dx/Plan - Plan 86 M hx 4vv CABG, recent flu, who p/w c/o of SOB, ALVARES found to have an abnormal EKG at his PCP's office * NSTEMI * apprec cardiology c/s * s/p C with FRANCESCA placed to mid SVG to OM * medical management otherwise * a/c ASA, plavix held for procedures ([facility] 05/13, possible ICD 05/14) * continue lisinopril, atorvastatin acute systolic HF * new decrease in EF to 25-50% noted on ECHO this hospitalization * diuresis with lasix 40mg PO BID, monitor lytes, I/O * continue spironolactone symptomatic ventricular tachyarrhythmia * apprec EP c/s * continue monitoring on telemetry * carvedilol, amiodarone recent influenza * continue to monitor respiratory status * concern for cardiac drivers of presentation * supplemental O2 as needed diet: as allowable per timing of procedures activity: as tolerated, has been working with cardiac rehab dvt ppx Review of Systems - Medications/Allergies Allergies/Adverse Reactions: Allergies Allergy/AdvReac Type Severity Reaction Status Date / Time codeine Allergy Verified 05/10/17 20:58 Medications: Current Medications Hydrocodone Bitart/Acetaminophen ([place] 5/325) 1 tab PO Q4H PRN PRN Reason: Moderate Pain (4-6) Albuterol/Ipratropium (Duoneb) 3 ml NEB Q4H PRN PRN Reason: SOB &/or Wheezing Amiodarone HCl (Cordarone) 400 mg PO BID [facility] Last Admin: 05/13/17 19:54 Dose: 400 mg Aspirin (Aspirin Chewable) 81 mg PO DAILY [facility] Carvedilol (Coreg) 12.5 mg PO BID-[facility] Last Admin: 05/13/17 18:01 Dose: 12.5 mg Clopidogrel Bisulfate (Plavix) 75 mg PO DAILY [facility] Coenzyme Q10 (Coenzyme Q10) 100 mg PO DAILY [facility] Last Admin: 05/13/17 09:31 Dose: 100 mg Cyanocobalamin (Vitamin B-12) 1,000 mcg PO DAILY [facility] Last Admin: 05/13/17 09:30 Dose: 1,000 mcg Famotidine (Pepcid) 20 mg PO BID [facility] Last Admin: 05/13/17 19:54 Dose: 20 mg Finasteride (Proscar) 5 mg PO QPM [facility] Last Admin: 05/13/17 19:54 Dose: 5 mg Fluticasone Propionate (Flonase Nasal [place]) 0 gm NASAL DAILY [facility] Last Admin: 05/13/17 09:32 Dose: 2 spr Furosemide (Lasix) 40 mg PO 0900,1400 [facility] Last Admin: 05/13/17 17:56 Dose: Not Given Lisinopril (Zestril) 10 mg PO DAILY [facility] Last Admin: 05/13/17 09:32 Dose: 10 mg Lysine (L-Lysine) 500 mg PO BID [facility] Last Admin: 05/13/17 19:54 Dose: 500 mg Magnesium Hydroxide (Milk Of Magnesium) 30 ml PO Q12H PRN PRN Reason: Constipation Magnesium Oxide (Magnesium Oxide) 400 mg PO BID [facility] Last Admin: 05/13/17 19:54 Dose: 400 mg Miscellaneous Information (Communication Order-Pharmacy) 0 each FS ONE [facility] Stop: 05/14/17 09:00 Multivitamins/Minerals (Ocuvite With Lutein) 1 tab PO DAILY [facility] Last Admin: 05/13/17 09:30 Dose: 1 tab Nitroglycerin (Nitrostat) 0.4 mg PO Q5MIN PRN PRN Reason: Chest Pain Ondansetron HCl (Zofran Odt) 4 mg PO Q6H PRN PRN Reason: Nausea/Vomiting Ondansetron HCl (Zofran) 4 mg IVP Q6H PRN PRN Reason: Nausea/Vomiting Sodium Chloride (Flush - Normal Saline) 10 ml IVF Q12HR [facility] Last Admin: 05/13/17 21:33 Dose: Not Given Sodium Chloride (Flush - Normal Saline) 10 ml IVF PRN PRN PRN Reason: Saline Flush Spironolactone (Aldactone) 12.5 mg PO DAILY [facility] Last Admin: 05/13/17 09:30 Dose: 12.5 mg Tamsulosin HCl (Flomax) 0.4 mg PO QPM [facility] Last Admin: 05/13/17 19:54 Dose: 0.4 mg Tizanidine HCl (Zanaflex) 4 mg PO Q6H PRN PRN Reason: Muscle Spasm Last Admin: 05/12/17 15:45 Dose: 4 mg Tramadol HCl (Ultram) 50 mg PO Q6H PRN PRN Reason: Mild Pain (1-3) Last Admin: 05/10/17 22:32 Dose: 50 mg
[2017-05-14] MEDS: Lysine 500 MG TAB PO SCH (09:00)
[2017-05-14] MEDS ORDERED: Clopidogrel Bisulfate 75 MG TAB PO SCH (09:00)
[2017-05-14] MEDS: Famotidine 20 MG TAB PO SCH (10:42)
[2017-05-14] MEDS: Lisinopril 10 MG TAB PO SCH (10:42)
[2017-05-14] MEDS: Magnesium Oxide 400 MG TAB PO SCH (10:42)
[2017-05-14] MEDS: Cyanocobalamin (Vitamin B-12) 1,000 MCG TAB PO SCH (10:42)
[2017-05-14] MEDS: Ubidecarenone 50 MG CAP PO SCH (10:43)
[2017-05-14] MEDS: Amiodarone 200 MG TAB PO SCH (10:43)
[2017-05-14] MEDS: Carvedilol 6.25 MG TAB PO SCH ×2 (10:43→18:57)
[2017-05-14] MEDS: Spironolactone 25 MG TAB PO SCH (10:44)
[2017-05-14] MEDS: Vit A,C & E/Lutein/Minerals Tablet PO SCH (10:44)
[2017-05-14] MEDS: Furosemide 40 MG TAB PO SCH ×2 (10:44→15:47)
--- NOTE | 2017-05-14 11:48 | EKG ---
Test Reason : S/P STENT Blood Pressure : / mmHG Vent. Rate : 076 BPM Atrial Rate : 076 BPM P-R Int : 238 ms QRS Dur : 166 ms QT Int : 446 ms P-R-T Axes : 052 082 -04 degrees QTc Int : 501 ms Sinus rhythm with 1st degree A-V block Right bundle branch block Abnormal ECG When compared with ECG of 10-MAY-2017 15:02, (Unconfirmed) No significant change was found Confirmed by DR. Minesh MARTIN ([id number]) on 05/14/2017 11:48:19 AM Referred By: CAL Confirmed By:DR. Minesh MARTIN
--- NOTE | 2017-05-14 11:51 | EKG ---
Test Reason : Blood Pressure : / mmHG Vent. Rate : 073 BPM Atrial Rate : 073 BPM P-R Int : 220 ms QRS Dur : 168 ms QT Int : 448 ms P-R-T Axes : 067 085 028 degrees QTc Int : 493 ms Sinus rhythm with 1st degree A-V block Right bundle branch block Abnormal ECG No previous ECGs available Confirmed by DR. Minesh MARTIN ([id number]) on 05/14/2017 11:51:45 AM Referred By: CAL Confirmed By:DR. Minesh MARTIN
[2017-05-14 16:19] VITALS: BP 119/60; TEMP 97.2
--- NOTE | 2017-05-14 17:48 | PRG ---
DATE OF SERVICE: 05/14/2017 SUBJECTIVE: Mr. Alfred is doing well. He states he is ambulating. No current complaints. PHYSICAL EXAMINATION: VITAL SIGNS: Blood pressure 119/60, pulse 62, temperature 97.2. LUNGS: Clear to auscultation. CARDIAC: Regular rate and rhythm. ABDOMEN: Soft, nontender, and nondistended. EXTREMITIES: No edema. IMPRESSION: 1. Severe coronary artery disease. 2. Status post stent placement. 3. Coronary artery disease, status post bypass surgery. 4. Nonsustained ventricular tachycardia. RECOMMENDATIONS: I have added amiodarone therapy. I also recommend LifeVest. He is agreeable. Con tinue aspirin, Plavix, beta-imtiaz therapy and MERLE inhibitor therapy. The patient will be fitted by LifeVest today. Once he is fitted, it would be okay from my standpoint to discharge home with close outpatient followup.
--- NOTE | 2017-05-14 20:08 | PRG ---
DICTATED BY: LARRY Arrington SUBJECTIVE: Mr. Alfred is an 86-year-old gentleman who was referred to us by Dr. Cisneros for sust ained ventricular tachycardia. He underwent left heart catheterization yesterday and was found to avalos ve 99% blockage in the saphenous graft to OM, and he underwent PCI. His recovery has been stable and without complication. Worsening LVEF most recently documented at 25%-30%. We found that his conges tive heart failure symptoms resolved and he is preparing for discharge. He has been fitted with Life Vest and today is without cardiac complaints or additional concerns. OBJECTIVE: VITAL SIGNS: 97.8 degrees Fahrenheit, pulse is 78, 94% on room air, respirations are 16, blood press ure 134/63. GENERAL: Mr. Alfred is alert and oriented. He is in no acute distress. HEENT: Sclerae are anicteric. EOMs intact. NECK: Supple without jugular venous distention. There is no thyromegaly or lymphadenopathy. HEART: Rate is regularly regular. EXTREMITIES: Lower extremities are warm and dry to touch without clubbing, cyanosis or edema. PULMONARY: Clear to auscultation bilaterally without wheezing or crackles or rhonchi. MUSCULOSKELETAL: Stable. SKIN: Stable. NEUROLOGIC: Grossly intact. The patient is nonfocal. DATABASE: Review of telemetry, there is no recurrence of sustained or nonsustained ventricular tachy cardia since PCI. The patient is maintaining sinus mechanism. LABORATORY DATA: Hematology: WBC 7.3, hemoglobin 12.9, hematocrit 40.5, platelet count 270. Chemis try: Sodium 135, potassium 5.1, chloride 101, carbon dioxide 27, BUN is 23, creatinine 0.79. IMPRESSION: 1. Sustained, self-terminating ventricular tachycardia. 2. Congestive heart failure, acute on chronic with worsening systolic dysfunction and left ventricul ar ejection fraction 25%-30%. 3. Right bundle branch block. 4. Coronary artery disease with prior 4-vessel bypass grafting and percutaneous coronary interventio n involving stenting of the saphenous grafts to the obtuse marginal performed 05/13/2017. PLAN: The patient will be discharged with a LifeVest and will reassess left ventricular ejection fra ction in 40 days. We considered initiating amiodarone; however, the patient has not had any recurren ce of his ventricular arrhythmia since stenting yesterday. We will hold off on antiarrhythmic therap y at this time.
--- NOTE | 2017-05-15 14:02 | DIS ---
DISCHARGE DIAGNOSES: 1. Icf-UY-hbfzycd elevation myocardial infarction. 2. Acute systolic heart failure with an ejection fraction of 25% to 30%. 3. Symptomatic ventricular tachyarrhythmia. 4. Influenza. BRIEF SUMMARY OF HOSPITAL COURSE: An 86-year-old male with a known history of cardiovascular disease including a 4-vessel bypass surgery, who was recently diagnosed with flu and presented during this h ospitalization with an initial chief complaint of shortness of breath, dyspnea on exertion. Please s ee the original history and physical for full details surrounding his admission. The patient initially presented with these complaints to his primary care provider's office and was f ound to have an abnormal EKG. He was subsequently sent from emergency department where he was found to have an NSTEMI. Cardiology was consulted during this hospitalization. The patient underwent a le ft heart catheterization with a drug-eluting stent placed in the mid saphenous venous graft to his OM . The patient was otherwise initiated and continued on medical management including anticoagulation with aspirin and Plavix. These medications have previously been held, specifically for the procedure . During this hospitalization, he was found to also have acute systolic heart failure with a new dec rease in his ejection fraction 25% to 30% as noted on echocardiogram. For this, he is continued on s pironolactone and diuresis with 40 mg of Lasix p.o. b.i.d. He will continue on this regimen on an ou tpatient basis. He was also seen by Electrophysiology in consultation for symptomatic ventricular ta chyarrhythmia during this hospitalization. At this point in time, he is being discharged with contin ued monitoring and will continue on carvedilol and amiodarone at this point in time. The patient was recently diagnosed with influenza prior to this hospitalization and has been managed for this on an outpatient basis. During this hospitalization, it was felt that his presenting respir atory symptoms of dyspnea on exertion and shortness of breath, which are resolved at the time of disc harge, more likely secondary to his cardiac issues as opposed to strictly pulmonary only. His chronic medical issues are otherwise stable during this hospitalization. CONSULTATIONS: 1. Cardiology. 2. Electrophysiology. 3. Case management. Please see the EMR for full details. Of note, the patient will continue on aspirin, Plavix, lisinopr il, atorvastatin, Lasix, spironolactone, carvedilol, amiodarone as noted above. No other home medica tions have been discontinued at this point in time. DISCHARGE INSTRUCTIONS: At the time of discharge, the patient is asked to followup closely with his primary care provider and Cardiology including Electrophysiology on an outpatient basis. These have been reviewed with the patient. He was able to complete teach-back in regards to his discharge follo malissa means. SIGNIFICANT LABS AND IMAGING: On 05/14/2017, BMP: Sodium 135, potassium 5.1, chloride 101, bicarb 2 7, BUN 23, creatinine 0.79, glucose 119. PATIENT'S CONDITION AT DISCHARGE: VITAL SIGNS: Stable. No acute distress. HEENT: Moist mucous membranes. Equal ocular motions are intact. Normocephalic, atraumatic. CARDIOVASCULAR: S1, S2. No murmurs, rubs or gallops. Pulses 2+ bilateral upper extremity. RESPIRATORY: No wheezes, rales or rhonchi. Reasonable air movement. Clear to auscultation bilatera lly. GASTROINTESTINAL: Soft, positive bowel sounds, nontender to palpation. MUSCULOSKELETAL: Moving all 4 extremities. Please see blood bank laboratory professional report for full details regarding his heart catheterization. On 05/10/2017: Echocardiogram summary, left ventricular size is moderately increased. Ejection frac tion is visually estimated at 25% to 30%. The left atrium is mildly dilated. Moderate mitral regurg itation is present. Aortic valve is mildly sclerotic, but not significantly stenotic. Moderate tric uspid regurgitation. Mildly elevated pulmonary artery pressure. Thank you for asking me to care for the patient. Questions or concerns, please contact me at [facility].
--- NOTE | 2017-05-17 08:59 | PQF ---
CHARLOTTE CHRISTINA RICARDO MD [id number] CLINICAL DOCUMENTATION CLARIFICATION FORM: POST DISCHARGE Addendum to original discharge summary date: ____ Late entry note date: __ CHARLOTTE CHRISTINA [id number] PLEASE DOCUMENT YOUR RESPONSE BELOW PLEASE FAX RESPONSE BACK TO YOUR INPUT IS NEEDED TO CORRECTLY CODE A DIAGNOSIS FOR YOUR PATIENT. DATE: 05/17/17 ATTN: Dr. Cisneros Please exercise your independent, professional judgment in responding to the clarification form. Clinical indicators are provided on the bottom of this form for your review Please check appropriate box(s) to clarify if the following diagnosis has been ruled in our ruled out: NSTEMI (CDI/Coding list diagnosis here) [ ] Ruled in diagnosis [ ] Continue to treat [ ] Resolved [ ] Ruled out diagnosis [ ] Cannot rule out diagnosis [ ] Other diagnosis [ ] Unable to determine In addition, please specify: Present on Admission (POA): [ ] Yes [ ] No [ ] Unable to determine CLINICAL INDICATORS - SIGNS / SYMPTOMS / LABS Elevated troponins abnormal EKG Acute systolic CHF RISK FACTORS CAD TREATMENTS Cardiac Cath MTDD
== END 2017-05-14 18:58 | disposition home or self-care (01) | DRG 246 ==
LOC: ERS 14:54 → 2NO 17:02
PROVIDERS: ADMIT Family Medicine; ATTEND Family Medicine
PROC: 027034Z Dilation of Coronary Artery, One Artery with Drug-eluting Intraluminal Device, Percutaneous Approach (ICD-10-PCS; principal; 2017-05-13)
PROC: 02C03ZZ Extirpation of Matter from Coronary Artery, One Artery, Percutaneous Approach (ICD-10-PCS; 2017-05-13)
PROC: 4A023N7 Measurement of Cardiac Sampling and Pressure, Left Heart, Percutaneous Approach (ICD-10-PCS; 2017-05-13)
PROC: B2111ZZ Fluoroscopy of Multiple Coronary Arteries using Low Osmolar Contrast (ICD-10-PCS; 2017-05-13)
DX: I21.4 Non-ST elevation (NSTEMI) myocardial infarction (principal); I50.23 Acute on chronic systolic (congestive) heart failure; I47.2 Ventricular tachycardia; I25.810 Atherosclerosis of coronary artery bypass graft(s) without angina pectoris; I11.0 Hypertensive heart disease with heart failure; I25.10 Atherosclerotic heart disease of native coronary artery without angina pectoris; I45.10 Unspecified right bundle-branch block; Z95.1 Presence of aortocoronary bypass graft; E78.5 Hyperlipidemia, unspecified; M54.5 Low back pain; N40.0 Benign prostatic hyperplasia without lower urinary tract symptoms
CPT/HCPCS: 36415; 71045; 76942; 80048; 80053; 80061; 80069; 82553; 83690; 83735; 83880; 84484; 85025; 85347; 85610; 85730; 92941; 93005; 93010; 93306; 93455; 93798; 94640; 94760; 96360; 96372; A4216; C1725; C1769; C1874; C1887; C9606; J1644; J1650; J1940; J2001; J7620; S0028

== ENCOUNTER 2017-05-29 07:43 | Emergency (ER) | payer MEDICARE ==
[2017-05-29 08:15] LABS: #Basophils 0.1 thou/uL (0.0-0.2); #Eosinphils 0.2 thou/uL (0.0-0.7); #Lymphocytes 2.1 thou/uL (1.20-3.40); #Monocytes 0.9 thou/uL (0.11-0.59); #Neutrophils 4.3 thou/uL (1.40-6.50); %Basophils 1.1 % (0.0-1.0); %Eosinophils 2.5 % (0.0-10.0); %Lymphocytes 27.4 % (21.0-51.0); %Neutrophils 57.1 % (42.0-75.0); Hemoglobin 13.3 g/dL (14.0-18.0); Mean Corpuscular Hemoglobin 33.2 pg (27.0-31.0); Mean Platelet Volume 7.8 fL (7.4-10.4); Platelet Count 319 thou/uL (130-400); RBC Distribution Width 11.7 % (11.5-14.5); Red Blood Cell (RBC) Count 4.01 mill/uL (4.70-6.10); White Blood Cell (WBC) Count 7.6 thou/uL (4.8-10.8)
--- NOTE | 2017-05-29 08:31 | RAD ---
CHEST ONE VIEW: History: Chest pain. Comparison: 05-10-17 FINDINGS: Cardiac silhouette is magnified by projection. Pulmonary vasculature is unremarkable. Mediastinum is midline with aortic calcification and post-operative changes. Lungs are hyperinflated. There is no lo bar consolidation or evidence of pneumothorax. IMPRESSION: 1. Atherosclerosis. 2. COPD. POS: [facility]
[2017-05-29 08:37] LABS: ALT (SGPT) 17 U/L (8-55); AST (SGOT) 19 U/L (5-34); Albumin 4.8 g/dL (3.4-4.8); Alkaline Phosphatase 91 U/L (40-150); Anion Gap 17 mmol/L (10-20); BUN (Urea Nitrogen) 27 mg/dL (8.4-25.7); Bilirubin, Total 0.4 mg/dL (0.2-1.2); CK (CPK) 99 U/L (30-200); Calc. Creatinine Clearance 0 mL/min (70-130); Calcium 10.6 mg/dL (7.8-10.44); Carbon Dioxide 23 mmol/L (23-31); Chloride 94 mmol/L (98-107); Estimated GFR-MDRD 73; Globulin 3.1 g/dL (2.4-3.5); Glucose 83 mg/dL (83-110); Potassium 5.6 mmol/L (3.5-5.1); Protein, Total 7.9 g/dL (5.8-8.1); Sodium 128 mmol/L (136-145)
[2017-05-29 08:41] LABS: CKMB 5.2 ng/mL (0-6.6); Troponin I 0.019 ng/mL (< 0.028)
[2017-05-29 10:49] LABS: Troponin I 0.014 ng/mL (< 0.028)
== END 2017-05-29 12:35 | disposition home or self-care (01) ==
LOC: ERS 07:43
DX: R07.9 Chest pain, unspecified (principal); Z45.02 Encounter for adjustment and management of automatic implantable cardiac defibrillator; E78.5 Hyperlipidemia, unspecified; I10 Essential (primary) hypertension; I25.10 Atherosclerotic heart disease of native coronary artery without angina pectoris; I48.91 Unspecified atrial fibrillation; Z79.899 Other long term (current) drug therapy
CPT/HCPCS: 36415; 71045; 80053; 82553; 83880; 84484; 85025; 93005; 94760

== ENCOUNTER 2017-07-08 06:05 | Day surgery (SDC) | payer MEDICARE ==
[2017-07-05 08:43] VITALS: BMI 25.4
[2017-07-08] MEDS ORDERED: Lidocaine 1% (PF) 30 ML VIAL ONE (06:56)
[2017-07-08] MEDS ORDERED: Phenylephrine HCL 10 MG/ML VIAL ONE (06:59)
[2017-07-08] MEDS ORDERED: Propofol 1,000 MG/100 ML VIAL IV ONE (07:00)
[2017-07-08] MEDS ORDERED: PROPOFOL 20 ML ONE (07:02)
[2017-07-08 07:28] LABS: Hemoglobin 10.5 g/dL (14.0-18.0); Mean Corpuscular HGB CONC 34.7 g/dL (32.0-36.0); Mean Corpuscular Hemoglobin 34.2 pg (27.0-31.0); Mean Corpuscular Volume 98.5 fl (80.0-94.0); Mean Platelet Volume 7.9 fL (7.4-10.4); Platelet Count 230 thou/uL (130-400); RBC Distribution Width 12.9 % (11.5-14.5); Red Blood Cell (RBC) Count 3.07 mill/uL (4.70-6.10); White Blood Cell (WBC) Count 4.6 thou/uL (4.8-10.8)
[2017-07-08 07:48] LABS: INR-International Normal Ratio 1.2; Prothrombin Time 15.4 SEC (12.0-14.7)
[2017-07-08 07:49] LABS: PTT 31.9 SEC (22.9-36.1)
[2017-07-08 07:57] LABS: Anion Gap 13 mmol/L (10-20); BUN (Urea Nitrogen) 25 mg/dL (8.4-25.7); Calc. Creatinine Clearance 75 mL/min (70-130); Calcium 10.4 mg/dL (7.8-10.44); Carbon Dioxide 23 mmol/L (23-31); Chloride 104 mmol/L (98-107); Estimated GFR-MDRD Greater than 90; Glucose 96 mg/dL (83-110); Potassium 5.9 mmol/L (3.5-5.1); Sodium 134 mmol/L (136-145)
[2017-07-08] MEDS ORDERED: Heparin 10,000 UNITS/1 ML VIAL ONE (08:18)
[2017-07-08] MEDS ORDERED: Lidocaine 2% Jelly 5 ML TUBE ONE (08:18)
[2017-07-08] MEDS ORDERED: DOPamine 400 MG/D5W 250 ML 250 ML ONE (09:11)
[2017-07-08 09:17] LABS: Band 5 % (5-11); Eosinophils 1 % (0-10); Lymphocytes 26 % (21-51); MDiff Complete? YES; Monocytes 15 % (0-10); Neutrophil 52 % (42-75); PLT Morphology Comment Appears Adequate; Polychromasia SLIGHT = 2-3 cells (100X) (0-2/hpf); Reactive Lymphocytes 1 % (0-10)
[2017-07-08] MEDS ORDERED: Ondansetron HCl/PF 4 MG/2 ML Vial IVP PRN ×2 (09:43)
[2017-07-08] MEDS ORDERED: Promethazine HCl 25 MG/ML VIAL SLOW IVP PRN ×2 (09:43)
--- NOTE | 2017-07-08 10:12 | OP ---
DATE OF PROCEDURE: 07/08/2017 PROCEDURE: Electrophysiology study and radiofrequency ablation. REFERRING PHYSICIAN: Dr. Tariq Cisneros REASON FOR PROCEDURE: Mr. Alfred is an 86-year-old gentleman with history of coronary artery diseas e, history of VT with subsequent stent placement, who also has reduced LVEF, he presented with soft a trial flutter, appears to be typical. He was recently started on Eliquis, but BALDEMAR prior to the proce dure demonstrated no intracardiac clots. He is here for EP study and ablation of his atrial flutter. PROCEDURE: The patient received deep sedation by Anesthesia specialist. After adequate sedation ach ieved, the right femoral vein was prepped and draped and anesthetized using subcutaneous lidocaine an d ultrasound guidance. Two 8-Kinyarwanda short sheath was introduced. Through this a Decapolar CS cathet er was advanced to the right atrium, His bundle and CS position. Pacing mapping and recording was pe rformed in each location. Following that overdrive pacing demonstrated shorter post-pacing wall by t he cavotricuspid was then the lateral left atrial shunt, then, the lateral CS. We proceeded with adv ancing ThermoCool SF ST ablation catheter in the right atrium. A 3D mapping of the right atrium was obtained and [place] His bundle and CS and cavotricuspid isthmus area. Ablation of the cavotricuspid isthmus area terminated the atrial flutter. Subsequent lesions were placed to prolong the transisthm us time to up to 240 milliseconds, which was long adjacent to the ablation line and shorter more late rally suggesting of complete unilateral CTI block. Following that, burst atrial pacing did not re-in duce atrial flutter. Basic EP study was performed with the following finding. The baseline cycle le ngth was 869, in sinus rhythm, WI 195. He has 127 QT 397, HV 39 milliseconds. The sinus node recove ry time is 1466 after overdrive pacing of the atrium with a coronary sinus node recovery times at 636 milliseconds. AV Wenckebach cycle length was 640 milliseconds. No VA conduction was seen. The gallo tricular access stimuli study was performed demonstrating inducible ventricular tachycardia at 600, 3 00, 260 and 180 milliseconds which required shock termination. After this on dopamine the cavotricuspid isthmus line was retested. The CTI block was still present. The pericardial fluid did not change from compared to beginning of the study. The patient remained hemodynamically stable, catheter was removed in the cardiac cath technologist. The patient at the cardiac cath technologist regained improving consciousness. CONCLUSION: 1. Typical isthmus dependent cavotricuspid isthmus dependent atrial flutter at baseline. 2. Status post CT ablation terminating atrial flutter and ending non-injury useable. 3. 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 4. Borderline AV neville conduction also noted. 5. ____ ventricular tachycardia. PLAN: 1. Consider reducing carvedilol especially if bradycardic symptoms occur. 2. Consider ICD implantation at a later date. 3. Stop lisinopril hence hyperkalemia.
[2017-07-08] MEDS ORDERED: Pancrelipase DR 12000 1 CAP PO SCH (10:30)
[2017-07-08] MEDS ORDERED: tiZANidine HCl 4 MG TAB PO PRN (10:38)
[2017-07-08] MEDS ORDERED: Furosemide 40 MG TAB PO SCH (14:00)
[2017-07-08] MEDS ORDERED: PROPOFOL 200 MG/20 ML VIAL ONE ×2 (14:01→14:02)
[2017-07-08] MEDS ORDERED: PHENYLEPHRINE-NS 100 MCG/ML 10 ML SYRINGE ONE (14:02)
[2017-07-08] MEDS ORDERED: Gabapentin 300 MG CAP PO SCH (15:00)
[2017-07-08 15:18] LABS: Anion Gap 9 mmol/L (10-20); BUN (Urea Nitrogen) 18 mg/dL (8.4-25.7); Calc. Creatinine Clearance 70 mL/min (70-130); Calcium 10.4 mg/dL (7.8-10.44); Carbon Dioxide 25 mmol/L (23-31); Chloride 105 mmol/L (98-107); Estimated GFR-MDRD 87; Glucose 119 mg/dL (83-110); Potassium 4.2 mmol/L (3.5-5.1); Sodium 135 mmol/L (136-145)
--- NOTE | 2017-07-08 15:44 | ECHO ---
TRANSESOPHAGEAL ECHOCARDIOGRAM REPORT: Date: 07/08/17 REASON FOR PROCEDURE: Mr. Alfred is a pleasant 86-year-old man with prior history of coronary artery disease, nonsustained VT, and reduced LVEF. The patient is here for a transesophageal echocardiogram to rule out intracard iac clot prior to upcoming ablation procedure. He has interrupted his Eliquis as planned PROCEDURE DETAILS: The patient received deep sedation by anesthesia specialist. After adequate sedation achieved, a sadie dard transesophageal echocardiogram probe was passed into the esophagus without difficulty. Patient t olerated procedure well. No application was noted. RESULTS: Left atrium moderately enlarged, 5.9 cm in horizontal diameter. Left atrial appendage was well seen a nd contained no clots. Left atrial appendage velocities were up to 40 cm/second. Four of four pulmona ry veins were well seen. Interatrial septum was free of defect. Mitral valve has mild regurgitation o nly. Tricuspid was also mildly regurgitant. Aortic valve was somewhat sclerotic, but not stenotic or regurgitant. No pulmonary regurgitation was seen. Pulmonary valve borderline visualized. Pericardial space without effusion. Right-sided chambers not markedly dilated. Visualized portion of ascending an d descending aorta without aneurysm, dissection, or atheroma. Left systolic function was mild to mode rately reduced, but borderline visualized only. CONCLUSION: 1. No intracardiac clots. 2. Mild to moderately reduced LVEF. 3. Moderate to severely enlarged left atrium. 4. Mild mitral and tricuspid regurgitation. 5. 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 PLAN: Proceed with ablation procedure.
--- NOTE | 2017-07-08 16:40 | EKG ---
Test Reason : PREOP Blood Pressure : / mmHG Vent. Rate : 069 BPM Atrial Rate : 227 BPM P-R Int : 000 ms QRS Dur : 170 ms QT Int : 486 ms P-R-T Axes : 079 069 013 degrees QTc Int : 520 ms Atrial flutter with variable A-V block with premature ventricular or aberrantly conducted complexes Right bundle branch block Abnormal ECG Confirmed by NATIVIDAD YEUNG ([id number]) on 07/08/2017 4:40:12 PM Referred By: CASEY Confirmed By:NATIVIDAD YEUNG
--- NOTE | 2017-07-08 16:48 | EKG ---
Test Reason : POST EP STUDY/ABLATI Blood Pressure : / mmHG Vent. Rate : 079 BPM Atrial Rate : 079 BPM P-R Int : 272 ms QRS Dur : 172 ms QT Int : 452 ms P-R-T Axes : 061 079 009 degrees QTc Int : 518 ms Normal sinus rhythm with premature ventricular or aberrantly conducted complexes Right bundle branch block T wave abnormality, consider inferior ischemia Abnormal ECG Confirmed by NATIVIDAD YEUNG ([id number]) on 07/08/2017 4:48:26 PM Referred By: CASEY Confirmed By:NATIVIDAD YEUNG
[2017-07-08] MEDS ORDERED: Atorvastatin Calcium 20 MG TAB PO SCH (21:00)
[2017-07-08] MEDS ORDERED: Lysine 500 MG TAB PO SCH (21:00)
[2017-07-08] MEDS ORDERED: Famotidine 20 MG TAB PO SCH (21:00)
[2017-07-08] MEDS ORDERED: Magnesium Oxide 400 MG TAB PO SCH (21:00)
[2017-07-08] MEDS ORDERED: Finasteride 5 MG TAB PO SCH (21:00)
[2017-07-08] MEDS ORDERED: Carvedilol 3.125 MG TAB PO SCH (21:00)
[2017-07-08] MEDS ORDERED: Tamsulosin HCl 0.4 MG CAP PO SCH (21:00)
[2017-07-09] MEDS ORDERED: Spironolactone 25 MG TAB PO SCH (08:00)
[2017-07-09] MEDS ORDERED: Vit A,C & E/Lutein/Minerals Tablet PO SCH (09:00)
[2017-07-09] MEDS ORDERED: Cyanocobalamin (Vitamin B-12) 1,000 MCG TAB PO SCH (09:00)
[2017-07-09] MEDS ORDERED: Multivitamin W/ Minerals 1 TAB PO SCH (09:00)
[2017-07-09] MEDS ORDERED: Fluticasone Propionate Nasal Spray 16 gm Bottle NASAL SCH (09:00)
[2017-07-09] MEDS ORDERED: CHROMIUM PIC PO SCH ×2 (09:00)
[2017-07-09] MEDS ORDERED: Clopidogrel Bisulfate 75 MG TAB PO SCH (09:00)
[2017-07-09] MEDS ORDERED: Ubidecarenone 50 MG CAP PO SCH (09:00)
[2017-07-09] MEDS ORDERED: Apixaban 5 MG TAB PO SCH (09:00)
[2017-07-09] MEDS ORDERED: GLUCOSAMINE/CHOND PO SCH ×2 (09:00)
== END 2017-07-08 16:03 | disposition home or self-care (01) ==
LOC: CCL 06:05
PROVIDERS: ATTEND Internal Medicine Cardiovascular Disease
PROC: 4A023FZ Measurement of Cardiac Rhythm, Percutaneous Approach (ICD-10-PCS; principal; 2017-07-08)
PROC: 4A0234Z Measurement of Cardiac Electrical Activity, Percutaneous Approach (ICD-10-PCS; 2017-07-08)
PROC: 02583ZZ Destruction of Conduction Mechanism, Percutaneous Approach (ICD-10-PCS; 2017-07-08)
DX: I48.3 Typical atrial flutter (principal); I25.10 Atherosclerotic heart disease of native coronary artery without angina pectoris; K52.9 Noninfective gastroenteritis and colitis, unspecified; C18.9 Malignant neoplasm of colon, unspecified; N40.0 Benign prostatic hyperplasia without lower urinary tract symptoms; E78.5 Hyperlipidemia, unspecified; I11.0 Hypertensive heart disease with heart failure; I50.22 Chronic systolic (congestive) heart failure; Z88.5 Allergy status to narcotic agent; Z88.6 Allergy status to analgesic agent; Z88.8 Allergy status to other drugs, medicaments and biological substances; Z79.01 Long term (current) use of anticoagulants; Z79.899 Other long term (current) drug therapy; Z98.890 Other specified postprocedural states
CPT/HCPCS: 76942; 80048 ×2; 85025; 85610; 85730; 93005 ×2; 93312; 93613; 93623; 93653; C1730; C1769; 36415; 93010; J1265; J1644; J2001; J2370; J2704

== ENCOUNTER 2017-09-27 12:58 | Outpatient (CLI) | payer MEDICARE | END 2017-09-27 12:59 | disposition home or self-care (01) | LOC: BICULT 12:58 | PROVIDERS: ATTEND Internal Medicine Cardiovascular Disease | DX: E04.1 Nontoxic single thyroid nodule (principal) | CPT/HCPCS: 76536 ==

== ENCOUNTER 2017-10-04 10:31 | Outpatient (CLI) | payer MEDICARE ==
[2017-10-04 11:03] LABS: Estimated GFR-MDRD - POC Greater than 90
[2017-10-04] MEDS ORDERED: ISOVUE-370 76%-LOCM 1 ML ONE (14:40)
== END 2017-10-04 10:32 | disposition home or self-care (01) ==
LOC: BICCT 10:31
PROVIDERS: ATTEND Thoracic Surgery (Cardiothoracic Vascular Surgery)
DX: I65.29 Occlusion and stenosis of unspecified carotid artery (principal); I65.21 Occlusion and stenosis of right carotid artery
CPT/HCPCS: 70498; 82565

== ENCOUNTER 2017-10-11 07:54 | Outpatient (CLI) | payer MEDICARE ==
[2017-10-11] MEDS ORDERED: ISOVUE-370 76%-LOCM 1 ML ONE (11:31)
== END 2017-10-11 07:55 | disposition home or self-care (01) ==
LOC: BICCT 07:54
PROVIDERS: ATTEND Thoracic Surgery (Cardiothoracic Vascular Surgery)
DX: I65.29 Occlusion and stenosis of unspecified carotid artery (principal); I70.203 Unspecified atherosclerosis of native arteries of extremities, bilateral legs
CPT/HCPCS: 75635

== ENCOUNTER 2017-10-29 06:01 | Inpatient (IN) | payer MEDICARE ==
[2017-10-28 13:50] VITALS: BMI 27.3
[2017-10-29] MEDS ORDERED: CEFAZOLIN/Water 2 GM/20 ML SYRINGE ONE (06:21)
[2017-10-29] MEDS ORDERED: Heparin 5,000 UNITS/ML VIAL ONE (06:23)
[2017-10-29] MEDS ORDERED: Protamine Sulfate 50 MG/5 ML VIAL ONE (06:23)
[2017-10-29 06:52] LABS: Hemoglobin 11.9 g/dL (14.0-18.0); Mean Corpuscular HGB CONC 34.8 g/dL (32.0-36.0); Mean Corpuscular Hemoglobin 33.2 pg (27.0-31.0); Mean Corpuscular Volume 95.5 fL (78.0-98.0); Mean Platelet Volume 7.3 fL (7.4-10.4); Platelet Count 176 thou/uL (130-400); RBC Distribution Width 11.9 % (11.5-14.5); Red Blood Cell (RBC) Count 3.58 mill/uL (4.70-6.10); White Blood Cell (WBC) Count 4.9 thou/uL (4.8-10.8)
[2017-10-29] MEDS ORDERED: Fentanyl 100 MCG/2 ML VIAL ONE (07:04)
[2017-10-29 07:10] LABS: Anion Gap 16 mmol/L (10-20); BUN (Urea Nitrogen) 23 mg/dL (8.4-25.7); Calc. Creatinine Clearance 69 mL/min (70-130); Calcium 10.4 mg/dL (7.8-10.44); Carbon Dioxide 24 mmol/L (23-31); Chloride 100 mmol/L (98-107); Estimated GFR-MDRD 79; Glucose 117 mg/dL (83-110); Potassium 4.8 mmol/L (3.5-5.1); Sodium 135 mmol/L (136-145)
[2017-10-29] MEDS ORDERED: Bupivacaine/Epinephrine 0.25% 30 ML VIAL ONE (08:27)
[2017-10-29] MEDS ORDERED: Phenylephrine 10 MG/NS 250 ML 250 ML IVPB PRN (08:44)
[2017-10-29] MEDS ORDERED: Acetaminophen 325 MG TAB PO PRN (08:44)
[2017-10-29] MEDS ORDERED: Ondansetron HCl/PF 4 MG/2 ML Vial IVP PRN (08:44)
[2017-10-29] MEDS ORDERED: Fentanyl 100 MCG/2 ML VIAL SLOW IVP PRN (08:44)
[2017-10-29] MEDS ORDERED: Sodium Chloride 0.9% 1,000 ML IV SCH (08:45)
[2017-10-29] MEDS ORDERED: CEFAZOLIN/Water 2 GM/20 ML SYRINGE SLOW IVP SCH (08:45)
--- NOTE | 2017-10-29 10:52 | OP ---
DATE OF PROCEDURE: 10/29/2017 PREOPERATIVE DIAGNOSIS: Critical left carotid stenosis. POSTOPERATIVE DIAGNOSIS: Critical left carotid stenosis. PROCEDURE: Left carotid endarterectomy with bovine patch angioplasty. SURGEON: Cristiano London M.D. ANESTHESIA: General. ESTIMATED BLOOD LOSS: Minimal. PROCEDURE IN DETAIL: After adequate anesthesia had been obtained, the patient was prepped and draped . He was rather stiff and table was rotated to the left, a magnet placed on the defibrillator prior to prepping and draping. Incision was made at an ultrasound located spot and platysma was divided. Sternocleidomastoid muscle was rotated, facial vein was ligated, clipped and divided and common inter nal and external carotid artery were exposed without difficulty. The vagus and hypoglossal nerves we re not visualized. Following heparinization, clamps were applied, arteriotomy performed, and a 12-Fr ench shunt inserted. Endarterectomy was performed without difficulty. Bovine patch was then used to close the arteriotomy, irrigating the area thoroughly prior to removing the shunt and then restoring flow up the internal, after flow was restored to the external. Protamine was given to partially rev erse the heparin. Due to some minor oozing from needle holes it was elected to place a small Rhys drain through a separate incision which was done following which the wound was irrigated thoroughly and closed in layers. The patient is to be taken to the recovery room in guarded condition.
[2017-10-29] MEDS: Clopidogrel Bisulfate 75 MG TAB PO SCH (12:57)
[2017-10-29] MEDS: Carvedilol 6.25 MG TAB PO SCH ×2 (12:57→19:58)
[2017-10-29] MEDS: CEFAZOLIN/Water 2 GM/20 ML SYRINGE SLOW IVP SCH ×2 (14:07→21:01)
[2017-10-29] MEDS ORDERED: PHENYLEPHRINE-NS 100 MCG/ML 10 ML SYRINGE ONE (15:26)
[2017-10-29] MEDS ORDERED: PROPOFOL 200 MG/20 ML VIAL ONE (15:26)
[2017-10-29] MEDS ORDERED: Ondansetron HCl/PF 4 MG/2 ML Vial ONE (15:26)
[2017-10-29] MEDS ORDERED: Glycopyrrolate 0.2 MG/ML 5 ML SYRINGE ONE (15:26)
[2017-10-29] MEDS ORDERED: Heparin 10,000 UNITS/ 10 ML VIAL ONE (15:26)
[2017-10-29] MEDS: traMADol HCl 50 MG TAB PO PRN (19:59)
[2017-10-29] MEDS ORDERED: Tamsulosin HCl 0.4 MG CAP PO SCH (21:00)
[2017-10-29] MEDS ORDERED: Atorvastatin Calcium 10 MG TAB PO SCH (21:00)
[2017-10-29] MEDS ORDERED: Finasteride 5 MG TAB PO SCH (21:00)
[2017-10-29] MEDS ORDERED: Spironolactone 25 MG TAB PO SCH (21:00)
[2017-10-30] MEDS: CEFAZOLIN/Water 2 GM/20 ML SYRINGE SLOW IVP SCH (05:02)
[2017-10-30] MEDS: traMADol HCl 50 MG TAB PO PRN (05:03)
--- NOTE | 2017-10-30 07:08 | DIS ---
DATE OF ADMISSION: 10/29/2017 DATE OF DISCHARGE: 10/30/2017 HOSPITAL COURSE: The patient underwent a left carotid endarterectomy for a critical left carotid dis ease having mild right carotid disease. Postoperative course was uneventful. His cardiac rhythm was undetermined, occasionally paced. His blood pressure was given. He will be discharged home on his admitting medicines. Discharge and follow up instructions were given. His incision looks nice, no s welling and a small drain had been left in at the time of surgery that was removed several hours afte r surgery.
[2017-10-30 07:29] VITALS: TEMP 98.4
[2017-10-30] MEDS: Carvedilol 6.25 MG TAB PO SCH (08:09)
[2017-10-30] MEDS: Clopidogrel Bisulfate 75 MG TAB PO SCH (08:10)
[2017-10-30 08:11] VITALS: BP 140/56
== END 2017-10-30 08:22 | disposition home or self-care (01) | DRG 39 ==
LOC: SURG A 06:01 → CCU 10:06 → EDSTATUS 11:25
PROVIDERS: ADMIT Thoracic Surgery (Cardiothoracic Vascular Surgery); ATTEND Thoracic Surgery (Cardiothoracic Vascular Surgery)
PROC: 03CL0ZZ Extirpation of Matter from Left Internal Carotid Artery, Open Approach (ICD-10-PCS; principal; 2017-10-29)
PROC: 03UL0KZ Supplement Left Internal Carotid Artery with Nonautologous Tissue Substitute, Open Approach (ICD-10-PCS; 2017-10-29)
DX: I65.22 Occlusion and stenosis of left carotid artery (principal); I10 Essential (primary) hypertension; E78.5 Hyperlipidemia, unspecified; I25.10 Atherosclerotic heart disease of native coronary artery without angina pectoris; N40.0 Benign prostatic hyperplasia without lower urinary tract symptoms; Z87.891 Personal history of nicotine dependence; Z85.038 Personal history of other malignant neoplasm of large intestine; Z88.6 Allergy status to analgesic agent; Z88.5 Allergy status to narcotic agent; Z79.02 Long term (current) use of antithrombotics/antiplatelets; Z79.82 Long term (current) use of aspirin; Z79.899 Other long term (current) drug therapy; Z95.1 Presence of aortocoronary bypass graft; Z95.810 Presence of automatic (implantable) cardiac defibrillator
CPT/HCPCS: 80048; 85027; J1642; J1644; J2405; J2704; J2720; J3010

== ENCOUNTER 2018-03-28 07:22 | Outpatient (CLI) | payer MEDICARE ==
--- NOTE | 2018-03-28 09:18 | ULT ---
THYROID ULTRASOUND: COMPARISON: 09/27/2017. HISTORY: Followup thyroid nodule. TECHNIQUE: Multiplanar, winters scale, and color Doppler images were obtained in a thyroid ultrasound. FINDINGS: There is a well-circumscribed hypoechoic nodule in the right lobe of the thyroid with a small amount of a cystic component in the center of the nodule. This nodule measures 3.8 x 2.1 x 1.7 cm in size. This has not significantly changed compared to the prior examination. No suspicious internal calcif ications are present. No other thyroid nodules are seen. The thyroid lobes measure 4.6 and 3.0 cm i n length on the right and left, respectively. IMPRESSION: Stable right thyroid nodule. POS: [facility]
== END 2018-03-28 07:23 | disposition home or self-care (01) ==
LOC: BICULT 07:22
PROVIDERS: ATTEND Otolaryngology Plastic Surgery within the Head & Neck
DX: D49.7 Neoplasm of unspecified behavior of endocrine glands and other parts of nervous system (principal); E04.1 Nontoxic single thyroid nodule
CPT/HCPCS: 76536

== ENCOUNTER 2018-04-14 23:15 | Emergency (ER) | payer MEDICARE ==
--- NOTE | 2018-04-14 23:42 | RAD ---
RIGHT SHOULDER TWO VIEWS: INDICATIONS: Pain from fall. FINDINGS: There is shortening of the humeral neck. This does indicate an impacted subcapital fracture. 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 IMPRESSION: Findings suggesting an impacted subcapital fracture of the proximal right humerus. CT may be obtaine d as necessary to further evaluate. POS: [facility]
[2018-04-15] MEDS ORDERED: Morphine 4 MG/ML VIAL ONE (00:10)
[2018-04-15] MEDS ORDERED: Ondansetron ODT 4 MG TAB ONE (00:11)
[2018-04-15] MEDS ORDERED: Acetaminophen 325 MG TAB ONE (00:11)
== END 2018-04-15 01:06 | disposition home or self-care (01) ==
LOC: ERS 23:15
DX: S42.201A Unspecified fracture of upper end of right humerus, initial encounter for closed fracture (principal); I10 Essential (primary) hypertension; I25.10 Atherosclerotic heart disease of native coronary artery without angina pectoris; Z79.899 Other long term (current) drug therapy; Z79.891 Long term (current) use of opiate analgesic; W17.89XA Other fall from one level to another, initial encounter
CPT/HCPCS: 96372; J2270; Q0162

== ENCOUNTER 2018-05-05 09:03 | Emergency (ER) | payer MEDICARE ==
[2018-05-05 09:42] LABS: Bilirubin Negative (Negative); Blood, Urine Negative (Negative); Glucose, Urine (Dipstick) Negative (Negative); Leukocyte Negative (Negative); Nitrite Negative (Negative); Protein, Urine (Dipstick) Negative (Neg-Trace); Urobilinogen 0.2 mg/dL (0.2-1.0); pH, Urine 7.5 (5.0-9.0)
[2018-05-05 09:46] LABS: Clarity Clear (Clear)
[2018-05-05 09:56] LABS: #Basophils 0.1 thou/uL (0.0-0.2); #Lymphocytes 1.3 thou/uL (1.20-3.40); #Neutrophils 7.7 thou/uL (1.40-6.50); %Basophils 0.5 % (0.0-1.0); %Eosinophils 0.4 % (0.0-10.0); %Lymphocytes 12.8 % (21.0-51.0); %Monocytes 9.9 % (0.0-10.0); %Neutrophils 76.4 % (42.0-75.0); Hemoglobin 11.9 g/dL (14.0-18.0); Mean Corpuscular HGB CONC 33.3 g/dL (32.0-36.0); Mean Corpuscular Hemoglobin 32.8 pg (27.0-31.0); Mean Corpuscular Volume 98.7 fL (78.0-98.0); Mean Platelet Volume 6.9 fL (7.4-10.4); Platelet Count 332 thou/uL (130-400); RBC Distribution Width 12.4 % (11.5-14.5); Red Blood Cell (RBC) Count 3.63 mill/uL (4.70-6.10)
--- NOTE | 2018-05-05 10:16 | CT ---
CT BRAIN WITHOUT CONTRAST: History: Fall. Comparison: None. FINDINGS: No acute hemorrhage or infarct. No midline shift of mass effect. Ventricular size and extraaxial CSF spaces are normal. Calvarium is intact. The paranasal sinuses and mastoids are clear. Moderate calcifications of the petrous as well as the cavernous and carotid arteries. IMPRESSION: No acute intracranial abnormality. POS: [facility]
[2018-05-05 10:17] LABS: ALT (SGPT) 16 U/L (8-55); AST (SGOT) 17 U/L (5-34); Albumin 4.7 g/dL (3.4-4.8); Alkaline Phosphatase 128 U/L (40-150); Anion Gap 13 mmol/L (10-20); BUN (Urea Nitrogen) 15 mg/dL (8.4-25.7); Bilirubin, Total 0.6 mg/dL (0.2-1.2); Calc. Creatinine Clearance 0 mL/min (70-130); Calcium 11.3 mg/dL (7.8-10.44); Carbon Dioxide 26 mmol/L (23-31); Chloride 99 mmol/L (98-107); Estimated GFR-MDRD Greater than 90; Globulin 3.2 g/dL (2.4-3.5); Glucose 108 mg/dL (83-110); Potassium 4.3 mmol/L (3.5-5.1); Protein, Total 7.9 g/dL (5.8-8.1); Sodium 134 mmol/L (136-145)
== END 2018-05-05 13:27 ==
LOC: ERS 09:03
DX: S00.83XA Contusion of other part of head, initial encounter (principal); M54.41 Lumbago with sciatica, right side; I10 Essential (primary) hypertension; I25.10 Atherosclerotic heart disease of native coronary artery without angina pectoris; I48.91 Unspecified atrial fibrillation; Z79.1 Long term (current) use of non-steroidal anti-inflammatories (NSAID); Z79.899 Other long term (current) drug therapy; W07.XXXA Fall from chair, initial encounter
CPT/HCPCS: 36415; 70450; 80053; 81003; 85025

== ENCOUNTER 2018-12-22 07:25 | Outpatient (CLI) | payer OTHER ==
[2018-12-22 07:56] LABS: Estimated GFR-MDRD - POC Greater than 90
--- NOTE | 2018-12-22 08:43 | CT ---
CT ABDOMEN AND PELVIS WITH IV CONTRAST: HISTORY: Right lower quadrant pain. Palpable nodule in the right lower quadrant area marked with syringe cap noted a month ago. The patient has a history of colon cancer with resection. COMPARISON: 12/25/2016. FINDINGS: Dependent changes are seen in the lung bases. The liver, spleen, pancreas, and adrenal glands are no rmal. Cysts in the kidneys are again noted. There are vascular calcifications without evidence of aneurysmal dilatation of the abdominal aorta. No free air or lymphadenopathy is seen in the abdomen or pelvis. a tiny amount of free fluid is note d in the right pelvis. The small bowel loops are not abnormally dilated. A normal-appearing appendix is present. There are postop changes in the sigmoid colon. There is mild colonic diverticulosis. There are vascular calcifications without evidence of aneurysmal dilatation of the abdominal aorta. There are degenerative changes in the spine. There is mild thickening of the anterior wall of the ur inary bladder. The prostate is enlarged. No mass is seen in the region of palpable concern in the right lower quadrant. IMPRESSION: 1. No evidence of acute process. 2. Bladder wall thickening. Cystoscopy is recommended. 3. Prostate enlargement. POS: [facility]
[2018-12-22] MEDS ORDERED: ISOVUE-370 76%-LOCM 1 ML ONE (13:41)
== END 2018-12-22 07:26 | disposition home or self-care (01) ==
LOC: BICCT 07:25
PROVIDERS: ATTEND Internal Medicine
DX: R10.31 Right lower quadrant pain (principal); N40.0 Benign prostatic hyperplasia without lower urinary tract symptoms; N32.89 Other specified disorders of bladder
CPT/HCPCS: 74177; 82565; Q9966

== ENCOUNTER 2019-02-02 15:54 | Emergency (ER) | payer OTHER | END 2019-02-02 18:14 | disposition home or self-care (01) | LOC: ERS 15:54 | DX: M62.830 Muscle spasm of back (principal); M62.838 Other muscle spasm; E78.5 Hyperlipidemia, unspecified; I10 Essential (primary) hypertension; I25.10 Atherosclerotic heart disease of native coronary artery without angina pectoris; I48.91 Unspecified atrial fibrillation; Z87.891 Personal history of nicotine dependence; Z85.038 Personal history of other malignant neoplasm of large intestine; Z79.899 Other long term (current) drug therapy | CPT/HCPCS: 99283 ==

== ENCOUNTER 2019-04-09 12:24 | Observation (INO) | payer MEDICARE ==
--- NOTE | 2019-04-09 12:54 | CT ---
CT HEAD WITHOUT IV CONTRAST COMPARISON: 05/05/2018 HISTORY: Leg numbness and back pain which is getting worse. Left lower extremity weakness. TECHNIQUE: Axial CT imaging at 5 mm intervals from vertex through skull base without contrast FINDINGS: Mild cerebral and cerebellar volume loss is present. There is no evidence of an acute infarction, hem orrhage, mass effect, or midline shift. The ventricular system is normal in size, shape, and position. Visualized paranasal sinuses are clear. Osseous structures appear intact.Dense vascular calcifications are seen in the region of the carotid siphons. IMPRESSION: 1. No acute intracranial abnormality demonstrated.CT head is overall stable compared to study on 05/05.
[2019-04-09 13:35] LABS: Hemoglobin 12.6 g/dL (14.0-18.0); Mean Corpuscular HGB CONC 34.4 g/dL (32.0-36.0); Mean Corpuscular Hemoglobin 34.3 pg (27.0-31.0); Mean Corpuscular Volume 99.5 fL (78.0-98.0); Mean Platelet Volume 7.8 fL (7.4-10.4); Platelet Count 222 thou/uL (130-400); RBC Distribution Width 11.6 % (11.5-14.5); Red Blood Cell (RBC) Count 3.67 mill/uL (4.70-6.10); White Blood Cell (WBC) Count 5.7 thou/uL (4.8-10.8)
[2019-04-09 13:41] LABS: PTT 28.4 SEC (22.9-36.1); Prothrombin Time 12.8 SEC (12.0-14.7)
[2019-04-09 14:01] LABS: ALT (SGPT) 18 U/L (8-55); AST (SGOT) 22 U/L (5-34); Albumin 4.7 g/dL (3.4-4.8); Alkaline Phosphatase 109 U/L (40-110); Anion Gap 13 mmol/L (10-20); BUN (Urea Nitrogen) 17 mg/dL (8.4-25.7); Bilirubin, Total 0.2 mg/dL (0.2-1.2); CK (CPK) 312 U/L (30-200); Calc. Creatinine Clearance 0 mL/min (70-130); Calcium 10.5 mg/dL (7.8-10.44); Carbon Dioxide 27 mmol/L (23-31); Chloride 100 mmol/L (98-107); Eosinophils 6 % (0-10); Estimated GFR-MDRD 89; Globulin 3.1 g/dL (2.4-3.5); Glucose 117 mg/dL (83-110); Lipase 53 U/L (8-78); Lymphocytes 31 % (21-51); MDiff Complete? YES; Monocytes 6 % (0-10); Neutrophil 57 % (42-75); Platelet Morphology Comment Appears Adequate; Polychromasia SLIGHT = 2-3 cells (100X) (0-2/hpf); Potassium 4.2 mmol/L (3.5-5.1); Protein, Total 7.8 g/dL (5.8-8.1); Sodium 136 mmol/L (136-145)
[2019-04-09 16:54] LABS: Bilirubin Negative (Negative); Blood, Urine Negative (Negative); Clarity Clear (Clear); Glucose, Urine (Dipstick) Normal (Negative); Leukocyte Negative Leu/uL (Negative); Nitrite Negative (Negative); Protein, Urine (Dipstick) Negative (Neg-Trace); Urobilinogen Normal mg/dL (Less than 2)
--- NOTE | 2019-04-09 17:32 | CT ---
Exam: LUMBAR SPINE CT WITHOUT CONTRAST: HISTORY: Motor deficits. Leg weakness. Left leg symptoms. COMPARISON: None. FINDINGS: Atherosclerosis of a nonaneurysmal aorta. Symmetric attenuation of the paraspinal muscles and psoas m uscles. Visualized solid organs are grossly unremarkable. No abnormality in the visualized pelvis. Unremarkable urinary bladder. Sagittal images demonstrate preserved presacral fat. Coronal and axial images demonstrate preserved s acral ala. Degenerative changes in both sacroiliac joints. Visualized bony pelvis is intact. There are 5 lumbar type vertebra. Lumbar spine vertebral body heights are maintained and there is no lumbar spine fracture. Spondylolisthesis: L3-L4: 2.8 mm of retrolisthesis; L5-S1: 4.6 mm of anterolisthesis. Remote pars def ects, right-sided at L4-L5. Laminectomy defect at L3-L4, L4-L5 and L5-S1. Abnormal soft tissue attenuation at the postoperative site is felt to represent scar tissue. Vacuum disc phenomenon at T10-T11 and T11-T12. Limited evaluation of the contents of the central spinal canal and neural foramina due to technique. T10-T11: No high-grade central canal stenosis. Moderate bilateral neural foraminal narrowing. T11-T12: No high-grade central canal stenosis. Moderate bilateral neural foraminal narrowing. T12-L1: No high-grade central canal stenosis or high-grade neural foraminal narrowing. L1-L2: Vacuum disc phenomenon. Broad-based disc bulge results in mild central canal stenosis. Mild bi lateral neural foraminal narrowing. L2-L3: Vacuum disc phenomenon. Broad-based disc bulge, ligamentum flavum thickening, and facet hypert rophy result in mild to moderate central canal stenosis. Moderate right and [id number] left neural foraminal narrowing. L3-L4: Posterior laminectomy defect. Broad-based disc bulge does not cause any significant central ca nal stenosis. Moderate to severe right and left foraminal narrowing. L4-L5: Posterior laminectomy defect. Vacuum disc phenomenon. Broad-based disc bulge, ligamentum flav um thickening and facet hypertrophy result in moderate central canal stenosis. Moderate to severe bilateral neural foraminal narrowing. Note at the mid L4 level, there appears to be severe central ca nal stenosis predominantly due to posterior element hypertrophy. L5-S1: Posterior laminectomy defect. Vacuum disc phenomenon. No high-grade central canal stenosis. Mo derate to severe right and moderate left neural foraminal narrowing. IMPRESSION: 1. Multilevel postsurgical and degenerative changes of the lumbar spine as detailed above. There is m ultilevel significant neural foraminal narrowing throughout the lumbar spine. There is moderate central canal stenosis at the L4-L5 disc space level as well as severe central canal stenosis at the mid L4 vertebral body level. 2. Spondylolysis and spondylolisthesis as detailed above. Transcribed Date/Time: 04/09/2019 6:26 PM
[2019-04-09] MEDS ORDERED: Ondansetron ODT 4 MG TAB PO PRN (18:26)
[2019-04-09] MEDS ORDERED: Guaifenesin DM 100-10/5 ML UDCUP PO PRN (18:26)
[2019-04-09] MEDS ORDERED: Ondansetron PF 4 MG/2 ML Vial IVP PRN (18:26)
[2019-04-09] MEDS ORDERED: Acetaminophen 650 MG Suppository PR PRN (18:26)
[2019-04-09] MEDS ORDERED: Acetaminophen 325 MG TAB PO PRN (18:26)
[2019-04-09 18:41] VITALS: BMI 26.6
--- NOTE | 2019-04-09 19:42 | HP ---
PRIMARY CARE PHYSICIAN: Isaias Brewer MD CHIEF COMPLAINT: Left leg weakness and numbness. HISTORY OF PRESENT ILLNESS: This is an 88-year-old white male with a known history of lumbar stenosis and previous lumbar laminectomy, also with coronary artery disease with previous CABG and stents. He starting to have some trouble with his left leg and with some low back pain on the left side beginning over the weekend. Then, yesterday evening, he actually was walking and his leg gave out from and he fell down a couple of times. He started to have to start using a walker after that. The patient noticed some numbness in the left leg as well. No pain in the leg, just to the low back on the left side. He had not had any trauma previous to the onset of the weakness and the low back pain since the fall after which it did not seem to affect the symptoms. He went into Dr. Cisneros's office for an appointment today, and Dr. Cisneros noted the significant weakness on the left side, called the neurosurgeon's office and they recommended he go to the emergency room to be evaluated to make sure he had not had a stroke and that his back causing the problems. In the emergency room, the patient had a negative CT of the brain and had a CT of the lumbar spine showing some significant degenerative changes and postsurgical changes along with a severe central canal stenosis at the mid L4 vertebral body level and moderate central canal stenosis at the L4-L5 disk space level as well. There was a thought about getting an MRI done in the emergency room; however, the patient has had a pacemaker with defibrillator that is not MRI compatible, so he is being admitted for observation and for a neurologic and neurosurgical consultation. PAST MEDICAL HISTORY: 1. Coronary artery disease. 2. Lumbar stenosis. 3. Hypertension. 4. Hyperlipidemia. 5. Benign prostatic hyperplasia. 6. Colon cancer status post surgical resection. PAST SURGICAL HISTORY: 1. CABG more than 5 years ago. 2. Aneurysm repair by Dr. London. 3. Lumbar laminectomy in 2016. 4. Carotid endarterectomy on the left by Dr. London in 2018, and a pacemaker with defibrillator placed by Dr. Cervantes some time in the last 1-2 years. 5. One foot of colon resected in 2001 for colon cancer. SOCIAL HISTORY: The patient does not smoke. No alcohol or illicit drug use. FAMILY HISTORY: Father with diabetes mellitus. Sisters all with diabetes mellitus as well and one sister who had acute MT and coronary artery disease. ALLERGIES: 1. CODEINE MAKES HIM SO HE CANNOT PEE. 2. NONSTEROIDAL ANTI-INFLAMMATORY MEDICATIONS. CURRENT MEDICATIONS: 1. Gabapentin 600 mg half a tablet 3 times a day. 2. Alpha-lipoic acid 200 mg daily. 3. Magnesium oxide 400 mg daily. 4. L-lysine 500 mg daily. 5. Glucosamine 500 mg daily. 6. Vitamin B12 1000 mcg daily. 7. Finasteride 5 mg daily. 8. Ferrous sulfate 325 mg daily. 9. Aspirin 81 mg daily. 10. Furosemide 40 mg daily. 11. Tamsulosin 0.4 mg daily. 12. Lutein 20 mg daily. 13. Valerian root 500 mg daily. 14. Multivitamin daily. REVIEW OF SYSTEMS: CONSTITUTIONAL: No fevers. No chills. EYES: No double vision or blurred vision. ENT: He has a little bit of stuffy nose. No sore throat. CARDIOVASCULAR: No chest pain. No palpitations or racing heart. PULMONARY: No coughing, wheezing, or shortness of breath. GASTROINTESTINAL: No abdominal pain. No nausea or vomiting. No diarrhea or constipation. GENITOURINARY: No dysuria or hematuria. No urinary incontinence or retention. MUSCULOSKELETAL: See HPI. SKIN: No rashes or other lesions noted. NEUROLOGIC: See HPI. He has not noticed any weakness anywhere else besides his left leg. He has not had any numbness or tingling anywhere else. He has had no difficulty with swallowing or with speech. No facial droop. He has had a little bit of a headache on and off and has a little bit of stiffness in the back of his neck since he had to lie on the gurney in the ER. The headache, however, is a chronic issue for him and is very mild and comes and goes. PHYSICAL EXAMINATION: VITAL SIGNS: Blood pressure 175/80, pulse 63, respirations 16, temperature 97.7 , O2 saturation 98% on room air. Pain level 6/10 in his left lower back. GENERAL: This is a well-developed, well-nourished white male, in no acute distress. HEENT: Pupils equal, round, and reactive to light. Oropharynx clear without lesions, erythema, or exudate. NECK: Supple. No lymphadenopathy. No thyroid nodules or enlargement. No JVD. He does have a little bit of muscular tenderness to palpation at the base of his skull, but on both sides of his cervical spine. Normal range of motion. HEART: Regular rate and rhythm. No murmurs, rubs, or gallops. LUNGS: Clear to auscultation bilaterally. No wheezes, crackles, or rhonchi. ABDOMEN: Soft, nontender to palpation. Normoactive bowel sounds. No hepatosplenomegaly or other masses. EXTREMITIES: No clubbing, cyanosis, or edema. SKIN: No rashes or other lesions noted. NEUROLOGIC: The patient has some significant about 3.5/5 strength in his left lower extremity, especially in the hip girdle. All of his other extremities are 5/5. He does have some paresthesias and some decreased sensation in the left lower extremity as well, though he can feel me touch him. Reflexes are slightly decreased in the left lower extremity as well. Normal everywhere else. The patient does have some tenderness to palpation of the SI joint on the left or the other area of the SI joint on the left, but not of palpation to the actual spine. He says that actually makes me feel better to press on it. No facial droop. Clear speech. Cranial nerves are intact and equal bilaterally. PSYCHIATRIC: Alert and oriented x3. Normal mood and affect. LABORATORY DATA: CBC with a normal white blood cell count, normal platelets. Hemoglobin is 12.6, hematocrit is 36.5. The rest is normal. Coagulation profile is normal. Complete metabolic panel is notable for glucose of 117, a calcium of 10.5, and a creatine kinase of 312. The rest is normal. Brain natriuretic peptide was elevated at 231, but that is actually markedly less than when he has come in with fluid retention where it is usually above 1000. Urinalysis was negative for evidence of infection or blood. IMAGING STUDIES: CT of the brain shows no evidence of acute abnormality. CT of the lumbar spine with results as per HPI. ASSESSMENT: 1. Acute weakness and numbness of the left lower extremity in the setting of left low back pain. This is most likely radicular in origin. Looking at the patient 's CT of his spine, he actually does have some severe central canal stenosis, and then, also multiple facet narrowings suspect that the low back is the source of the etiology of his problems. We will consult Neurology and Neurosurgery tomorrow to help evaluate this patient. At this point, I doubt that he has had a stroke or central nervous issue. 2. Hypertension. We will resume the patient's home medications. 3. Coronary artery disease. We will resume the patient's aspirin and blood pressure medications. 4. Benign prostatic hyperplasia. We will resume the patient's medications to assist with voiding. 5. Deep venous thrombosis prophylaxis. We will put the patient on Lovenox subcu as well as encourage ambulation with physical therapy. We will have Physical and Occupational therapy evaluate him and keep him moving. 6. Gastrointestinal prophylaxis. We will put the patient on Pepcid twice a day. 7. Code status. I did discuss with the patient, he is a full code. Should he be incapacitated, he states his son would be his medical decision maker. His name is Miguel Perezkins. Job ID: [id number] MTDD
[2019-04-09] MEDS: Aspirin Chewable 81 MG TAB PO SCH (20:49)
[2019-04-09] MEDS: Tamsulosin HCl 0.4 MG CAP PO SCH (20:50)
[2019-04-09] MEDS: HYDROcodone/Acetaminophen 5/325 mg Tablet PO PRN (20:51)
[2019-04-09] MEDS: Gabapentin 300 MG CAP PO SCH (20:51)
[2019-04-09] MEDS: Famotidine 20 MG TAB PO SCH (20:52)
[2019-04-09] MEDS: Finasteride 5 MG TAB PO SCH (20:52)
[2019-04-09] MEDS ORDERED: Dexamethasone 4 mg/ml Vial SLOW IVP SCH (21:00)
[2019-04-10] MEDS ORDERED: FLU VACC TS2019-20(65YR UP)/PF 180 MCG/0.5 ML SYRINGE IM ONE (09:00)
--- NOTE | 2019-04-10 09:01 | CON ---
DATE OF CONSULTATION: 04/10/2019 CONSULTING PHYSICIAN: Hospitalist Service. 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 These usually resolve with time. PLAN: PT evaluation for possible bracing and teaching for management of the weakness until it resolves. HISTORY OF PRESENT ILLNESS: Mr. Alfred is an 88-year-old gentleman with a past history of lumbar spinal stenosis, pacemaker implantation with defibrillator, BPH, who gets around independently. He reports that on Saturday, he had a new onset of weakness in the left leg, it was not associated with any radicular pain. He has constant numbness in the leg since his prior spinal surgery 4 years ago. He was getting around with no assistive devices. He started having buckling of the left knee and fell. He was seen at the [facility] office and referred here for further evaluation. He had a CT scan of the brain done, which did not show any evidence of acute ischemic event. CT of the lumbar spine shows some moderate spinal stenosis at the L4-L5 level with prior laminectomy changes. He denies any problems with the right leg. He is not reporting any distal weakness of the left leg. He denies any upper extremity weakness or clumsiness. He has not had any slurred speech or facial droop. He denies any headache, nausea, vomiting, vertigo, or alteration of vision. PAST MEDICAL HISTORY: As listed above. ALLERGIES: CODEINE, NON-STEROIDALS. MEDICATIONS: List was reviewed. FAMILY HISTORY: Noncontributory. REVIEW OF SYSTEMS: Ten-system review of systems is otherwise negative. PHYSICAL EXAMINATION: VITAL SIGNS: Blood pressure 142/74, pulse 74, respirations 16, and temperature 97.9. GENERAL: He is a healthy-appearing elderly gentleman, appears younger than his age. HEENT: Pupils are equal and reactive. Conjunctivae are clear. Oropharynx clear. Cranium, normocephalic and atraumatic. NECK: Supple. No lymphadenopathy. EXTREMITIES: No cyanosis, clubbing, or edema. He has good pulses distally in the left leg. NEUROLOGIC: He is alert and appropriate. His speech is fluent and clear. Cranial nerves II through XII are intact. Motor exam showed good strength in both upper extremities without fix or drift. Motor exam showed weakness of left hip flexion and knee extension in the range of 3/5. Sensory, he reports diminished sensation to light touch in both lower extremities. Reflexes were 2+ at the right knee, absent at the left knee, and 1+ at both ankles. Plantar responses are downgoing. Gait was not tested. LABORATORY STUDIES: Unremarkable CBC, coags, and chemistry panel. CK was mildly elevated at 312. Urine was clear. IMAGING STUDIES: Imaging was reviewed. SUMMARY: Given the pattern of weakness limited to hip flexion and knee extension with a diminished knee reflex on the left, this would be consistent with either an L3-L4 root impingement or femoral neuropathy. It is difficult to discern based on his exam and chronic sensory dysfunction. His spinal stenosis does not appear overtly severe. I would have Dr. Oleary review the imaging and decide whether anything further surgically is necessary, but given the lack of radicular pain, I would suspect this will probably resolve with time. Job ID: [id number]
[2019-04-10] MEDS: Famotidine 20 MG TAB PO SCH ×2 (09:19→20:44)
[2019-04-10] MEDS: Cyanocobalamin (Vitamin B-12) 1,000 MCG TAB PO SCH (09:19)
[2019-04-10] MEDS: Furosemide 40 MG TAB PO SCH (09:19)
[2019-04-10] MEDS: Gabapentin 300 MG CAP PO SCH ×3 (09:20→20:44)
[2019-04-10] MEDS: HYDROcodone/Acetaminophen 5/325 mg Tablet PO PRN ×2 (09:20→20:47)
[2019-04-10] MEDS: Senokot S 8.6-50 MG TAB PO PRN (09:20)
[2019-04-10] MEDS: Ferrous Sulfate 325 MG TAB PO SCH (09:20)
[2019-04-10] MEDS: Magnesium Oxide 400 MG TAB PO SCH (09:20)
[2019-04-10] MEDS: Enoxaparin Sodium 40 MG/0.4 ML SYRINGE SC SCH (09:21)
--- NOTE | 2019-04-10 11:51 | PRG ---
DATE OF SERVICE: 04/10/2019 SUBJECTIVE: The patient is seen and examined at the bedside. He is seeing some improvement in his left lower extremity weakness. He is able to elevate his leg a little bit above the surface of the bed, which is significant improvement comparing to what he was able to do yesterday. OBJECTIVE: VITAL SIGNS: Blood pressure is 118/67, pulse is 70, respirations 18, O2 saturation is 95% on room air, his temperature is 98.3. HEENT: His head is atraumatic and normocephalic. Eyes are PERRLA. Sclerae are nonicteric. Oral mucosa is moist. NECK: Supple. LUNGS: Clear. HEART: S1, S2 normal. No S3. No S4. ABDOMEN: Soft, nontender, nondistended. EXTREMITIES: No clubbing, cyanosis, or edema. There is a significant weakness in the left lower extremity. The patient is not able to do much. He is able to elevate the straight leg above the bed surface. He is able to bend his knee. NEUROLOGIC: There is mild weakness in the left thigh area and lack of knee reflex on the left side in the lower extremity. He is able to follow my commands. LABORATORY DATA: Labs showed normal urine. IMPRESSION: 1. Acute left leg weakness. 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 Dr. Oleary is consulted. 2. Coronary artery disease, chronic, stable. 3. Hypertension, chronic, stable. 4. Benign prostatic hyperplasia, chronic, stable. 5. Lumbar stenosis. 6. History of colon cancer and status post surgical resection. PLAN: We are going to continue his PT and OT. We are awaiting for Neurosurgery to see the patient. We will continue his current regimen. Job ID: [id number]
--- NOTE | 2019-04-10 14:22 | PRG ---
DATE OF SERVICE: 04/10/2019 Mr. Alfred is a very pleasant 88-year-old gentleman who I have known for years now. I operated on him 4 years ago with L3-S1 laminectomy. He did well for a period of time and I had seen him, however, historically for concern of recurrent lumbar radiculopathy which resulted in anterior thigh pain on the right side. He had seen Dr. Cisneros yesterday and had reported to Dr. Cisneros that he felt weak in his left leg and our Neurosurgery team was consulted and emergency room evaluation was recommended. Review of head CT is negative. CT scan of the lumbar spine demonstrated spondylitic changes throughout his lumbar spine with evidence of prior lumbar laminectomy. He has a pacemaker in place and evidently he is on aspirin and Plavix. An MRI would be of benefit here. However, we are not able to do that, it appears due to his type of pacemaker. Dr. Garces had seen the patient and noted 3/5 strength in left hip flexion and left knee extension with a working diagnosis of femoral neuropathy. I came to see the patient, but he was in the shower. As such, our team will return. I think it best to get a CT myelogram of the thoracic and lumbar spine. I had discussed with the patient revision lumbar hemilaminotomies and foraminotomies in the past, but his symptoms could be L3, L4 or even L5 and this would be more foraminal stenosis. Again, I would like to get a CT myelogram, but if he has been on Plavix, that will not be possible at this time. We will return to see the patient and see how he is doing. Job ID: [id number]
[2019-04-10] MEDS: Tamsulosin HCl 0.4 MG CAP PO SCH (20:43)
[2019-04-10] MEDS: Finasteride 5 MG TAB PO SCH (20:44)
[2019-04-10] MEDS: Aspirin Chewable 81 MG TAB PO SCH (20:44)
--- NOTE | 2019-04-10 22:26 | CON ---
DATE OF CONSULTATION: 04/10/2019 CHIEF COMPLAINT: Chronic low back pain, new onset left leg weakness with recent falls. HISTORY OF PRESENT ILLNESS: Mr. Alfred is a pleasant 88-year-old gentleman who is known to our team. He had a prior L3-S1 laminectomy procedure in March 2015. Due to persistent symptoms of leg pain and paresthesias, he has an MRI of the lumbar spine in the Fall of 2015 that showed recurrent lumbar stenosis. Bilateral revision hemilaminotomies at L4-L5 and L5-S1 were recommended; however, the patient wished to pursue conservative management with [facility], PT and acupuncture at that time. He has not been seen by our office since 2017. Today the patient reports he has been experiencing left leg weakness over the last 5 days. He experienced 2 falls on Saturday when his left leg gave out from underneath him. He has since being using a walker to assist with ambulation, when he typically requires no assistive devices for ambulation. He reports that he has chronic low back pain; however, this has somewhat worsened this week. He reports chronic bilateral lower extremity paraesthesias that have been present since his prior surgery in 2015. Plavix was listed on his medication list, however the patient clarifies Dr. Cisneros took him off this medication 1-2 years ago. Currently, he only takes an 81 mg baby aspirin, and has been on Lovenox during his hospital stay. He has a pacemaker in place that is not MRI compatible. PHYSICAL EXAMINATION: GENERAL: The patient is awake, alert, and appropriate. He is in good spirits and makes jokes frequently throughout the visit. MUSCULOSKELETAL: He has no midline cervical, thoracic, or lumbar spinal tenderness to palpation. No tenderness to palpation over the bilateral sacroiliac joints. He has excellent strength throughout his upper and lower extremities bilaterally. I did not appreciate any weakness in his iliopsoas, hamstring, or quadriceps bilaterally. He has excellent strength with dorsiflexion and plantar flexion of his feet. Sensation is intact and equal in his bilateral legs. Gait was not assessed. IMPRESSION/DIAGNOSES: 1. Chronic low back pain. 2. New onset left leg weakness with recent falls. 3. History of L3-S1 laminectomies in 03/2015 for lumbar stenosis and lumbar radiculopathy. 4. On 81 mg aspirin. PLAN: At this time, I have discussed this case and reviewed all imaging with Dr. Oleary. His pacemaker is not MRI compatible, thus unable to obtain MRI of lumbar spine. Given that the patient has not been on Plavix for 1-2 years, plan was to order CT myelogram of the cervical, thoracic, and lumbar spines for further evaluation to determine if patient requires urgent surgical intervention over the weekend. However, no radiology technicians were available at the time the CT myelograms were ordered this afternoon, and the radiologist informed me that only urgent CT myelogram studies can be completed over the weekend. Discussed this with Dr. Oleary, who said myelogram studies can be held at this time and he will see patient tomorrow to evaluate and discuss options for completing imaging going forward. We will continue to follow the patient during his hospital stay. Call with any neurologic changes or other concerns. This was a 50 minute initial visit in which greater than 50% of the time was spent in review of prior records, imaging, evaluation, examination of the patient, and formulation of a plan. The remaining time was spent in counseling and coordination of care. Job ID: [id number] [facility]
[2019-04-11] MEDS: Magnesium Oxide 400 MG TAB PO SCH (08:23)
[2019-04-11] MEDS: Furosemide 40 MG TAB PO SCH (08:23)
[2019-04-11] MEDS: Gabapentin 300 MG CAP PO SCH ×3 (08:23→21:02)
[2019-04-11] MEDS: Cyanocobalamin (Vitamin B-12) 1,000 MCG TAB PO SCH (08:24)
[2019-04-11] MEDS: Ferrous Sulfate 325 MG TAB PO SCH (08:24)
[2019-04-11] MEDS: Enoxaparin Sodium 40 MG/0.4 ML SYRINGE SC SCH (08:24)
[2019-04-11] MEDS: Famotidine 20 MG TAB PO SCH ×2 (08:24→21:02)
[2019-04-11] MEDS: HYDROcodone/Acetaminophen 5/325 mg Tablet PO PRN ×2 (11:37→21:02)
--- NOTE | 2019-04-11 11:53 | PRG ---
DATE OF SERVICE: 04/11/2019 SUBJECTIVE: I saw Mr. Alfred this morning. He is an 88-year-old gentleman well known to me. I did an L3 through S1 laminectomy on him in 2016. He has progressed or he has had over the years, right and now left anterior thigh pain with some extension below the knee into the L5 distribution and into the posterior thigh. He presented recently with two falls and increased weakness in the left leg. On exam, he has 4/5 strength in his left L2, left L3 and 5/5 in his left L4 and left L5-S1 myotomes. He is ambulating with a rolling walker. I would like to arrange for inpatient rehab performed for the next week or so and I will arrange for a CT myelogram of the cervical, thoracic, and lumbar spine in my clinic in the next couple weeks. I will arrange for this. He can be started back on his anticoagulation. Obviously, procession to surgery, he will be predicated on what I see on the CT myelogram, although admittedly on a CT of the lumbar spine, he has improved canal diameter, but obviously without myelography or an MRI (which is out of the question given his pacemaker) is impossible the appearance of his lumbar roots. Job ID: [id number]
[2019-04-11] MEDS: Senokot S 8.6-50 MG TAB PO PRN (14:38)
--- NOTE | 2019-04-11 15:26 | PRG ---
DATE OF SERVICE: 04/11/2019 SUBJECTIVE: The patient is seen and examined at bedside. He does not have much complaints to offer. He has some constipation, although he had two small bowel movements today, but it is very hard. OBJECTIVE: VITAL SIGNS: Blood pressure is 108/65, pulse is 63, temperature is 98.6, respirations 16, O2 saturation 94% on room air. HEENT: His head is atraumatic and normocephalic. Eyes are PERRLA. Sclerae are nonicteric. Oral mucosa is moist. NECK: Supple. LUNGS: Clear. HEART: S1, S2 normal. ABDOMEN: Soft, nontender, nondistended. EXTREMITIES: No clubbing, cyanosis, or edema. NEUROLOGICAL: He is alert and oriented x4. The left lower extremity examination is the same what it was yesterday. Please refer to that. LABS: None. IMPRESSION: 1. Left leg weakness with recent falls. 2. Chronic back pain. 3. Coronary artery disease, chronic, stable. 4. Hypertension, chronic, stable. 5. Benign prostatic hyperplasia, chronic, stable. 6. Lumbar stenosis. 7. History of colon cancer, status post surgical resection. 8. Constipation. 9. History of L3-S1 laminectomy by Dr. Oleary. PLAN: The patient is awaiting inpatient rehabilitation as soon as the bed is available and CT myelogram per Neurosurgery on outpatient basis. MRI was not done since there was a problem with the pacemaker compatibility. We will continue PT and OT and transfer him to inpatient rehab as soon as the bed is available. Job ID: [id number]
[2019-04-11] MEDS: Aspirin Chewable 81 MG TAB PO SCH (21:01)
[2019-04-11] MEDS: Tamsulosin HCl 0.4 MG CAP PO SCH (21:02)
[2019-04-11] MEDS: Finasteride 5 MG TAB PO SCH (21:02)
[2019-04-11] MEDS: Docusate 100 MG CAP PO SCH (21:02)
[2019-04-12] MEDS: HYDROcodone/Acetaminophen 5/325 mg Tablet PO PRN ×2 (06:39→17:48)
[2019-04-12] MEDS: Furosemide 40 MG TAB PO SCH (06:40)
[2019-04-12] MEDS: Cyanocobalamin (Vitamin B-12) 1,000 MCG TAB PO SCH (09:57)
[2019-04-12] MEDS: Docusate 100 MG CAP PO SCH ×2 (09:58→20:41)
[2019-04-12] MEDS: Enoxaparin Sodium 40 MG/0.4 ML SYRINGE SC SCH (09:59)
[2019-04-12] MEDS: Famotidine 20 MG TAB PO SCH ×2 (10:00→20:41)
[2019-04-12] MEDS: Ferrous Sulfate 325 MG TAB PO SCH (10:01)
[2019-04-12] MEDS: Gabapentin 300 MG CAP PO SCH ×3 (10:02→20:41)
[2019-04-12] MEDS: Magnesium Oxide 400 MG TAB PO SCH (10:03)
--- NOTE | 2019-04-12 12:37 | PRG ---
DATE OF SERVICE: 04/12/2019 SUBJECTIVE: The patient is seen and examined at the bedside. He is feeling somewhat better. He is seeing some progress in recover of his left lower extremity weakness. He is happy that he is able to elevate his leg slightly higher than what he was yesterday. OBJECTIVE: VITAL SIGNS: Blood pressure is 122/67, pulse is 62, respirations 16, O2 saturation 96% on room air. His temperature is 98.1. GENERAL: He is not in any distress during my visit. HEENT: His head is atraumatic and normocephalic. Eyes are PERRLA. Sclerae are nonicteric. Oral mucosa is moist. NECK: Supple. LUNGS: Clear. HEART: S1 and S2 normal. No S3. No S4. ABDOMEN: Soft, nontender, nondistended. EXTREMITIES: No clubbing, cyanosis, or edema. He is able to elevate his left leg slightly above the level of the bed, and the extension in the knee is significantly impaired. He is alert and oriented x4. There are no any other abnormalities. LABORATORY DATA: None. IMPRESSION: 1. Left leg weakness with recent falls. 2. Chronic back pain. 3. Coronary artery disease, chronic, stable. 4. Hypertension, chronic, stable. 5. Benign prostatic hyperplasia, chronic, stable. 6. Lumbar stenosis. 7. History of colon cancer, status post surgical resection. 8. Constipation. 9. History of L3-S1 laminectomy by Dr. Oleary. PLAN: As mentioned above and before. We are waiting for rehabilitation to be transferred. He is going to have CT myelogram on his spine by Neurosurgery on outpatient basis since we were not able to do MRI on him secondary to pacemaker incompatibility. For now, we will continue PT and OT until he has bed in the rehab, then he will be transferred. Job ID: [id number]
[2019-04-12] MEDS: Aspirin Chewable 81 MG TAB PO SCH (20:40)
[2019-04-12] MEDS: Tamsulosin HCl 0.4 MG CAP PO SCH (20:41)
[2019-04-12] MEDS: Finasteride 5 MG TAB PO SCH (20:41)
[2019-04-13] MEDS: Furosemide 40 MG TAB PO SCH (07:16)
[2019-04-13] MEDS: HYDROcodone/Acetaminophen 5/325 mg Tablet PO PRN ×2 (07:16→13:52)
[2019-04-13] MEDS: Docusate 100 MG CAP PO SCH (09:16)
[2019-04-13] MEDS: Enoxaparin Sodium 40 MG/0.4 ML SYRINGE SC SCH (09:16)
[2019-04-13] MEDS: Famotidine 20 MG TAB PO SCH (09:16)
[2019-04-13] MEDS: Magnesium Oxide 400 MG TAB PO SCH (09:16)
[2019-04-13] MEDS: Ferrous Sulfate 325 MG TAB PO SCH (09:16)
[2019-04-13] MEDS: Gabapentin 300 MG CAP PO SCH ×2 (09:16→13:52)
[2019-04-13] MEDS: Cyanocobalamin (Vitamin B-12) 1,000 MCG TAB PO SCH (09:16)
[2019-04-13 11:46] VITALS: TEMP 98.5
[2019-04-13 11:54] VITALS: BP 131/77
--- NOTE | 2019-04-13 14:02 | DIS ---
DATE OF ADMISSION: 04/09/2019 DATE OF DISCHARGE: 04/13/2019 PRIMARY CARE PROVIDER: Dr. Scott Brewer. FINAL DIAGNOSES: Back pain, weakness in legs, lumbar spinal stenosis, coronary artery disease, hypertension. DISCHARGE MEDICATIONS: 1. Lasix 40 mg twice a day. 2. Coenzyme Q10 100 mg a day. 3. Aldactone 25 mg one-half tablet at night. 4. Zocor 40 mg one-half tablet at night. 5. Finasteride 5 mg a day. 6. Ferrous sulfate 325 mg a day. 7. Aspirin 81 mg a day. 8. Gabapentin 300 mg three times a day. 9. Flomax 0.4 mg a day. 10. [place] 5/325 one every 4 hours as needed for pain. 11. Pepcid 20 mg twice a day. 12. Lovenox 40 mg a day. 13. Colace 100 mg twice a day. 14. Some p.r.n. vitamins, etc. ALLERGIES: TO CODEINE, AND NSAIDS. HOWEVER, HE IS TOLERATING HYDROCODONE WITHOUT ANY PROBLEM. DIET: Heart healthy. PENDING AT THE TIME OF DISCHARGE: Further workup for his lumbar spinal stenosis per Dr. Oleary. CODE STATUS: Full code status. HOSPITAL COURSE: The patient admitted to the [facility] through [facility] with left leg weakness and numbness, back pain. He has had a history of a previous lumbar spinal surgery. He was seen, evaluated. Pain was considered to be radicular in origin. CT of the spine reveals severe central canal stenosis, etc. Neurology and Neurosurgery were consulted. Initial admitting lab, CBC, white count 5.7, hemoglobin 12.6, platelet count 222,000. INR 1.0. Common metabolic profile. He had a CK of 312, calcium of 10.5, glucose of 117, otherwise unremarkable. Consult from Dr. Daren Garces, Neurology, he considered L3-[address] Oleary's, so I am in consultation, Neurosurgery, wanted an MRI, but with his pacemaker it is not possible. He wants to do a CT myelogram in the future off Plavix. This needs to be arranged through Dr. Oleary's office. Usually the Plavix is stopped for about a week. He has been improving with physical therapy and occupational therapy. He is being transferred to the rehab service for continuing PT/OT and probable schedule of a contrast lumbar myelogram in consultation with Dr. Oleary, off Plavix. Followup post rehab with Dr. Scott Brewer. Job ID: [id number]
== END 2019-04-13 15:08 | disposition home or self-care (01) ==
LOC: ERS 12:24 → 2SE 16:40
PROVIDERS: ADMIT Emergency Medicine; ATTEND Emergency Medicine
DX: R53.1 Weakness (principal); R20.0 Anesthesia of skin; G89.29 Other chronic pain; M54.9 Dorsalgia, unspecified; M48.061 Spinal stenosis, lumbar region without neurogenic claudication; I10 Essential (primary) hypertension; I25.10 Atherosclerotic heart disease of native coronary artery without angina pectoris; E78.5 Hyperlipidemia, unspecified; N40.0 Benign prostatic hyperplasia without lower urinary tract symptoms; M47.816 Spondylosis without myelopathy or radiculopathy, lumbar region; M43.16 Spondylolisthesis, lumbar region; K59.00 Constipation, unspecified; Z85.038 Personal history of other malignant neoplasm of large intestine; Z79.82 Long term (current) use of aspirin; Z79.899 Other long term (current) drug therapy; Z88.5 Allergy status to narcotic agent; Z88.8 Allergy status to other drugs, medicaments and biological substances; Z95.1 Presence of aortocoronary bypass graft; Z95.5 Presence of coronary angioplasty implant and graft; Z95.810 Presence of automatic (implantable) cardiac defibrillator; Z90.49 Acquired absence of other specified parts of digestive tract; Z98.890 Other specified postprocedural states
CPT/HCPCS: 70450; 72131; 80053; 81003; 82550; 83690; 83880; 85025; 85610; 85730; 90662; 97110 ×2; 97116 ×2; 97139 ×2; 99285; G0008; 36415; 90471; 96372; 96374; G0378; J1100; J1650

== ENCOUNTER 2019-10-28 05:54 | Day surgery (SDC) | payer OTHER ==
[2019-10-23 15:29] VITALS: BMI 26.6
[2019-10-28] MEDS ORDERED: traMADol HCl 50 MG TAB ONE (11:01)
--- NOTE | 2019-10-28 17:45 | EKG ---
Test Reason : PREOP Blood Pressure : / mmHG Vent. Rate : 063 BPM Atrial Rate : 500 BPM P-R Int : 000 ms QRS Dur : 166 ms QT Int : 456 ms P-R-T Axes : 000 068 -07 degrees QTc Int : 466 ms Wide QRS rhythm Right bundle branch block T wave abnormality, consider inferior ischemia atrial pacemaker with possible failure to capture Abnormal ECG No previous ECGs available Confirmed by DR. Minesh MARTIN ([id number]) on 10/28/2019 5:45:19 PM Referred By: CAL Confirmed By:DR. Minesh MARTIN
--- NOTE | 2019-12-08 08:09 | OP ---
DATE OF PROCEDURE: 10/28/2019 PREPROCEDURE DIAGNOSIS: Claudication. POSTPROCEDURE DIAGNOSIS: Severe peripheral vascular disease. PROCEDURE PERFORMED: 1. Bilateral aortofemoral runoff. 2. Aortogram. COMPLICATIONS: None. ESTIMATED BLOOD LOSS: Less than mL. DESCRIPTION OF PROCEDURE: Patient was prepped and draped in sterile fashion. We accessed the right femoral artery under ultrasound guidance. Omniflush catheter was used and placed in the aorta. It was then placed in the contralateral segment successfully. Images then performed. FINDINGS: Aorta has significant atherosclerosis present with no areas of stenosis or aneurysm. Left lower extremity-the common iliac artery has significant atherosclerosis with no significant stenosis. The external iliac artery does have an area of stenosis with no significant gradient present. The common femoral artery is free of significant disease. The SFA has severe disease present with significant calcification in the mid to distal region. There are multiple areas of heavy calcification present. The popliteal artery also has significant calcification with severe stenosis present. The anterior tibial artery is patent. The tibioperoneal trunk is also patent. There are three vessel runoff to the foot via the peroneal and tibioperoneal artery. Right lower extremity-the common iliac, external iliac artery, and common femoral artery have no significant disease. There is significant areas of calcification present. There is significant calcium present in the common femoral artery transitioning into the SFA. There is significant stenosis present at the near ostial region of the SFA and proximal region estimated at 70% to 80%. The distal SFA does have 50% to 60% stenosis. The anterior tibial artery does have 70% ostial stenosis. The peroneal artery is completely occluded. The posterior tibial artery is patent. IMPRESSION: Severe multivessel disease. RECOMMENDATION: Conservative therapy versus a femoral-popliteal bypass. Job ID: [id number]
== END 2019-10-28 13:00 | disposition home or self-care (01) ==
LOC: CCL 05:54
PROVIDERS: ATTEND Internal Medicine Cardiovascular Disease
PROC: 047D3ZZ Dilation of Left Common Iliac Artery, Percutaneous Approach (ICD-10-PCS; principal; 2019-10-28)
PROC: 047C3ZZ Dilation of Right Common Iliac Artery, Percutaneous Approach (ICD-10-PCS; principal; 2019-10-28)
DX: I73.9 Peripheral vascular disease, unspecified (principal); I70.0 Atherosclerosis of aorta; I11.0 Hypertensive heart disease with heart failure; I50.22 Chronic systolic (congestive) heart failure; I25.10 Atherosclerotic heart disease of native coronary artery without angina pectoris; E78.5 Hyperlipidemia, unspecified; Z88.5 Allergy status to narcotic agent; Z88.6 Allergy status to analgesic agent; Z79.82 Long term (current) use of aspirin; Z79.899 Other long term (current) drug therapy; Z87.891 Personal history of nicotine dependence; Z95.0 Presence of cardiac pacemaker; Z95.1 Presence of aortocoronary bypass graft
CPT/HCPCS: 36247; 75630; 75716; 76942; 93005; 93010; J1644

== ENCOUNTER 2020-09-19 09:12 | Emergency (ER) | payer OTHER ==
[2020-09-19 10:00] LABS: #Eosinphils 0.1 thou/uL (0.0-0.7); #Lymphocytes 1.5 thou/uL (1.20-3.40); #Monocytes 0.8 thou/uL (0.11-0.59); %Basophils 0.6 % (0.0-1.0); %Eosinophils 2.2 % (0.0-10.0); %Lymphocytes 23.1 % (21.0-51.0); %Monocytes 12.5 % (0.0-10.0); %Neutrophils 61.5 % (42.0-75.0); Hemoglobin 11.9 g/dL (14.0-18.0); Mean Corpuscular HGB CONC 35.7 g/dL (32.0-36.0); Mean Corpuscular Hemoglobin 33.7 pg (27.0-31.0); Mean Corpuscular Volume 94.5 fL (78.0-98.0); Mean Platelet Volume 8.5 fL (7.4-10.4); Platelet Count 185 thou/uL (130-400); RBC Distribution Width 12.3 % (11.5-14.5); Red Blood Cell (RBC) Count 3.54 mill/uL (4.70-6.10); White Blood Cell (WBC) Count 6.5 thou/uL (4.8-10.8)
[2020-09-19 10:20] LABS: ALT (SGPT) 18 U/L (8-55); AST (SGOT) 23 U/L (5-34); Albumin 4.4 g/dL (3.4-4.8); Alkaline Phosphatase 77 U/L (40-110); Anion Gap 15 mmol/L (10-20); BUN (Urea Nitrogen) 18 mg/dL (8.4-25.7); Bilirubin, Total 0.3 mg/dL (0.2-1.2); Calc. Creatinine Clearance 0 mL/min (70-130); Calcium 9.9 mg/dL (7.8-10.44); Carbon Dioxide 22 mmol/L (23-31); Chloride 99 mmol/L (98-107); Globulin 2.9 g/dL (2.4-3.5); Glucose 113 mg/dL (83-110); Protein, Total 7.3 g/dL (5.8-8.1); Sodium 131 mmol/L (136-145)
== END 2020-09-19 11:31 | disposition home or self-care (01) ==
LOC: ERS 09:12
DX: R20.2 Paresthesia of skin (principal); R42 Dizziness and giddiness; R29.700 NIHSS score 0; I49.3 Ventricular premature depolarization; E78.5 Hyperlipidemia, unspecified; I10 Essential (primary) hypertension; I25.10 Atherosclerotic heart disease of native coronary artery without angina pectoris; I49.9 Cardiac arrhythmia, unspecified; I48.91 Unspecified atrial fibrillation; Z95.0 Presence of cardiac pacemaker; Z87.891 Personal history of nicotine dependence; Z79.899 Other long term (current) drug therapy
CPT/HCPCS: 71045; 80053; 83880; 84484; 85025; 93005